=== PATIENT | female | born 1970 | race Caucasian/White ===

== ENCOUNTER 2018-09-18 18:42 | Outpatient (REF) | payer BC, SELFPAY ==
--- NOTE | 2018-09-18 15:00 | PAPFT_PTH ---
PATIENT: Kiya Lewis LOC: [facility] U#:[id number] AGE/SX: 48/F ROOM: RE09/18/[address]: Adri Coelho MD : 1970 BED: DIS: 09/18/2018 SPEC #: [id number] RECD: 09/19/18 13:20 STATUS: KIRILL REDianne #: [id number] STORM: 09/18/18 15:[address]: Adri Coelho DEPT: [facility] Cytology RECD BY: Marcelle Little Tissues: 1 - CX/ENDOCX FOR PAP SMEARS Procedures: PAP THIN PREP/UVM Screening HPV DNA PROBE Comments: [id number]
== END 2018-09-18 19:02 ==
LOC: LBN 18:42
PROVIDERS: PCP Family Medicine; Visit Provider Family Medicine
DX: Z12.4 Encounter for screening for malignant neoplasm of cervix (principal); Z11.51 Encounter for screening for human papillomavirus (HPV)
CPT/HCPCS: 88142; 87624

== ENCOUNTER 2018-09-22 00:56 | Outpatient (CLI) | payer BC, SELFPAY ==
--- NOTE | 2018-09-22 11:36 | DI.RAD_ITS ---
SYMPTOMS/DIAGNOSIS: PARESTHESIA AND PAIN LT UPPER EXTREMITY, PARESTHESIA OF SKIN, R20.2 CERVICAL SPINE: Odontoid, AP, lateral and bilateral oblique views. There are no priors for comparison. There is straightening of the normal cervical lordosis. This may be due to muscle spasm or patient positioning. The odontoid is intact. The lateral masses are well aligned. There are small endplate osteophytes seen at C 4 - 5. There is mild disc space narrowing and small endplate osteophytes at C 5 - 6. The remaining disc levels are unremarkable. There is mild narrowing of the neural foramen on the left at C 5 - 6 and on the right at C 5 - 6. No acute fracture or subluxation is seen. The prevertebral soft tissues are unremarkable. The bones are normally mineralized. IMPRESSION: Mild degenerative changes of the cervical spine.
== END 2018-09-22 01:16 ==
PROVIDERS: PCP Family Medicine; Visit Provider Family Medicine
DX: R20.2 Paresthesia of skin (principal); M47.812 Spondylosis without myelopathy or radiculopathy, cervical region; M79.622 Pain in left upper arm
CPT/HCPCS: 72050

== ENCOUNTER 2018-10-13 00:05 | Outpatient (CLI) | payer BC, SELFPAY ==
--- NOTE | 2018-10-13 07:30 | DI.MAMMO_ITS ---
SYMPTOMS/DIAGNOSIS: SCREENING, Z12.31 MAMMOGRAMS: Mammograms were interpreted according to the usual protocol including computer analysis with CAD system, tomosynthesis and C view imaging. Comparison is with the prior examinations. No suspicious masses or microcalcifications are seen. There is asymmetric breast tissue in the medial left breast seen on the craniocaudad view. This may simply represent overlying fibroglandular tissue, but a spot compression view is requested for further evaluation. Ultrasound may be indicated at that time. IMPRESSION: Additional views of the left breast as described above. Category 0. Breast density B. MQSA ASSESSMENT OF FINDINGS: Incomplete: Needs additional imaging evaluation. Category 0. Patient will receive a letter notifying them of these results. BI-RADS category B. There are scattered areas of fibroglandular density.
== END 2018-10-13 00:25 ==
PROVIDERS: PCP Family Medicine; Visit Provider Family Medicine
DX: Z12.31 Encounter for screening mammogram for malignant neoplasm of breast (principal); R92.8 Other abnormal and inconclusive findings on diagnostic imaging of breast
CPT/HCPCS: 77063; 77067

== ENCOUNTER 2018-10-18 02:00 | Outpatient (CLI) | payer BC, SELFPAY ==
--- NOTE | 2018-10-18 14:15 | DI.COMBO_ITS ---
SYMPTOMS/DIAGNOSIS: ASYMMETRIC BREAST TISSUE, MEDIAL LEFT BREAST, ? FIBROGLANDULAR TISSUE ADDITIONAL VIEWS OF THE LEFT BREAST AND LEFT BREAST ULTRASOUND: Additional images are interpreted according to the usual protocol including tomosynthesis and 2D imaging. Compression CC spot films of the left breast were obtained today. There is no definite mass. At ultrasound, no cyst or mass is identified. SUMMARY: No evidence of malignancy, category 1. Yearly screening mammography is recommended. Breast density category B. SA ASSESSMENT OF FINDINGS: Negative. Category 1. Patient will receive a letter notifying them of these results. BI-RADS category B. There are scattered areas of fibroglandular density.
== END 2018-10-18 02:20 ==
PROVIDERS: PCP Family Medicine; Visit Provider Family Medicine
DX: Z12.31 Encounter for screening mammogram for malignant neoplasm of breast (principal); R92.8 Other abnormal and inconclusive findings on diagnostic imaging of breast; N64.59 Other signs and symptoms in breast
CPT/HCPCS: 76642; 77063; 77067

== ENCOUNTER 2019-01-16 00:31 | Outpatient (CLI) | payer BC, SELFPAY ==
--- NOTE | 2019-01-16 09:32 | DI.US_ITS ---
SYMPTOMS/DIAGNOSIS: IRREGULAR MENSTRUAL PERIOD X 1 MONTH, ABNL UTERINE BLEEDING, N93.9 PELVIC ULTRASOUND: A transabdominal and transvaginal examination was carried out. The uterus measures 8.6 cm in length, 4.8 cm in height and 4.9 cm in width with an endometrial stripe of 8.5 mm. The right ovary measures 2.5 x 1.3 x 1.5 cm. The left ovary was not visualized. There is no evidence of pelvic free fluid. The kidneys are unremarkable. SUMMARY: Unremarkable examination with note made of nonvisualization of the left ovary.
== END 2019-01-16 00:51 ==
PROVIDERS: PCP Family Medicine; Visit Provider Nurse Practitioner Family
DX: N93.9 Abnormal uterine and vaginal bleeding, unspecified (principal)
CPT/HCPCS: 76830; 76856

== ENCOUNTER 2019-03-07 12:16 | Outpatient (CLI) | payer BC, SELFPAY ==
--- NOTE | 2019-03-07 12:29 | DI.RAD_ITS ---
SYMPTOMS/DIAGNOSIS: SHORTNESS OF BREATH, PNEUMONIA, J18.9 PA AND LATERAL CHEST: The heart is normal in size. The lungs are clear. The mediastinal structures and pleura appear intact. SUMMARY: Normal chest.
== END 2019-03-07 12:36 ==
PROVIDERS: PCP Family Medicine; Visit Provider Emergency Medicine
DX: J18.9 Pneumonia, unspecified organism (principal); R06.02 Shortness of breath
CPT/HCPCS: 71046

== ENCOUNTER 2019-05-08 08:06 | Day surgery (SDC) | payer BC, SELFPAY ==
--- NOTE | 2019-05-08 07:02 | W.COLOREPORT ---
Date of service: 05/08/19 Time of Service: 09:25 Colonoscopy Report Date of procedure: 05/08/19 Pre-op diagnosis general: Hx of Villous Serrated adenoma Post-op diagnosis procedure note: other (Multiple colorectal polyps) Procedure: Colonoscopy with polypectomy Surgeon: Iris Lewis Anesthesia proc note operative: other (General/ ASA 2/Jaron Chacon, CECILIA) Estimated blood loss (mL): 3 Pathology: other (Rectal polypx2, sigmoid polyps x4, hepatic flexure P, descending polyp,) Complications: None Disposition: same day Indications: Mrs Méndez is a pleasant 49-year-old female who had a colonoscopy in 2016 which showed a villous serrated adenoma. She was seen in the office for follow-up colonoscopy. Risks, benefits and complications have been reviewed. Complications include but are not limited to bleeding, pain, perforation, missed small lesion/polyp, sore throat, aspiration and adverse reaction to the medications. Questions were entertained and answered to their satisfaction and they wished to proceed. No guarantees were given or implied. Prep: Miralax/Dulcolax Procedure Start Time: :25 Procedure End Time: 10:04 Retraction Time: 17 minutes Findings: Multiple flat polyps Procedure Description: After informed consent was obtained the patient was taken to the procedure room and placed in a left decubitous position. Monitors were applied and a time out was done. The patients name, date of , procedure, allergies to medications and metal in their body was reviewed. The patient was then sedated. Once sedated and comfortable a rectal exam was done. External exam was normal. Internal exam revealed a normal sphincter tone and no palpable masses. The scope was then introduced and retro-flexed. No internal hemorrhoids, masses or polyps were identified. The scope was then advanced to the cecum with some difficulty. The colon was tortuous. The TI and appendiceal orifice were identified. The prep was adequate. The scope was then slowly retracted over 17 minutes back into the rectum. Polyps were removed with cold forceps in the rectum x2, sigmoid colon x4, cecum, and descending colon. Polyp was removed with hot snare in the hepatic flexure. No diverticula were identified. The scope was removed and the patient was woken up and taken back to Same day surgery in stable condition. The patient tolerated the procedure well and there were no immediate complications. Follow up: The patient should follow up in 3 years unless they develop changes in bowel habits or other new gastrointestinal complaints.
--- NOTE | 2019-05-08 07:04 | PDOC.DSDIS_ITS ---
Discharge Plan Disposition Patient Disposition: HOME Condition: Good Discharge Details Reason For Visit: Hx of polyps Attending Provider: Iris Lewis Primary Care Provider: Adri Coelho Home Meds and New Rx's Prescriptions: Continued triamcinolone acetonide 0.1 % cream 1 applic TP BID PRN (Reason: dermatitis) Qty: 30 RF: 3 meloxicam 15 mg tablet 15 mg PO PRN RF: 0 hydroxyzine HCl 25 mg tablet 25 - 50 mg PO HS PRN (Reason: itching) Qty: 30 RF: 2 carisoprodol 350 mg tablet 350 mg PO TID PRN (Reason: muscle pain) Qty: 25 RF: 0 albuterol sulfate [ProAir HFA] 8.5 GM HFA aerosol inhaler 1 - 2 puff Inhalation QID PRNQty: 1 RF: 6 omeprazole 40 mg capsule,delayed release(DR/EC) 40 mg PO DAILY Qty: 30 RF: 11 Symbicort 80-4.5 mcg/actuation HFA aerosol inhaler 2 puff Inhalation BID Qty: 1 RF: 6 Discontinued polyethylene glycol 3350 17 gram/dose powder 238 g PO ONCE Qty: 238 RF: 0 bisacodyl [Dulcolax (bisacodyl)] 5 mg tablet,delayed release (DR/EC) 5 mg PO ONCE Qty: 4 RF: 0 Discharge Instructions Instructions: Colonoscopy (GEN), Colorectal Polyps (DC) Additional Instructions: Findings: 9 polyps Follow up: 3 years Please call if you develop: fevers >101.5 Nausea or Vomiting Abdominal pain that is not transient DAY SURGERY UNIT POST ENDOSCOPY INSTRUCTIONS 1. Because there will be medication in your system for the next 24 hours, you may feel a little sleepy. Your coordination will be affected. Therefore: a. Do not drive or operate dangerous equipment for 24 hours. b. Do not drink alcohol beverages for 24 hours (not even beer). c. Plan to go home and rest for the day. 2. Generally there are no restrictions on your activity after a day or so has gone by, but you may feel a bit fatigued for a few days. 3 After you arrive home you may have a light meal and return to a normal diet as you can tolerate it without feeling sick to your stomach. 4. After surgery, you may feel pain or discomfort. This should be only transien t, but if it persists please contact your doctor. 5. If there are any questions regarding the findings of your procedure, please feel free to contact your doctor. 6. If you are unable to contact your doctor with a problem, contact the hospital at [phone]. 7. Continue all your regular medications unless directed otherwise. I understand the above instructions and have no questions. Signature of Patient or Responsible Adult Escort Date/Time Name of Responsible Adult Escort Signature of Nurse Date/Time Activity:: Activity as Tolerated Diet:: As Tolerated Discharge Orders Discharge Orders: Discharge Order (Routine); Ordered 05/08/19 Ordered By: Iris Lewis DS: Diagnosis Discharge Diagnosis (1) S/P colonoscopy: Status: Acute (2) Colorectal polyp detected on colonoscopy: Status: Acute
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
[2019-05-08 08:26] VITALS: BP 121/52; PULSE 67; RESP 16; TEMP 36.2; O2SAT 100
[2019-05-08] MEDS: Lactated Ringers 1,000 ML 80 ML IV (08:49)
--- NOTE | 2019-05-08 09:26 | BOWEL_PTH ---
PATIENT: Kiya Lewis LOC: [facility] U#:[id number] AGE/SX: 49/F ROOM: RE05/08/[address]: Iris Lewis MD : 1970 BED: DIS: 05/08/2019 SPEC #: [id number] RECD: 05/08/19 12:48 STATUS: KIRILL RE #: [id number] STORM: 05/08/19 09:[address]: Iris Lewis DEPT: Surgical Specimen RECD BY: Marcelle Little ENTERED: 05/08/19 12:49 SP TYPE: Bowel OTHR DR: Adri Coelho MD Tissues: 1 - BIOPSY BOWEL 2 - BIOPSY BOWEL 3 - BIOPSY BOWEL 4 - BIOPSY BOWEL 5 - BIOPSY BOWEL 6 - BIOPSY BOWEL 7 - BIOPSY BOWEL Procedures: GROSS AND MICRO LEVEL 4 Comments: [id number]
[2019-05-08 10:40] VITALS: BP 103/55; PULSE 56; RESP 18; TEMP 36.2; O2SAT 100
== END 2019-05-08 11:05 | disposition home or self-care (01) ==
LOC: SUR 08:07
PROVIDERS: PCP Family Medicine; Visit Provider Surgery
PROC: 0DJD8ZZ Inspection of Lower Intestinal Tract, Via Natural or Artificial Opening Endoscopic (ICD-10-PCS; CPT 45378; principal; 2019-05-08 09:30)
DX: Z12.11 Encounter for screening for malignant neoplasm of colon (principal); D12.0 Benign neoplasm of cecum; D12.3 Benign neoplasm of transverse colon; D12.4 Benign neoplasm of descending colon; D12.5 Benign neoplasm of sigmoid colon; K62.1 Rectal polyp; Z86.010 Personal history of colon polyps
CPT/HCPCS: 45385; 45380; 88305; NC; J2250; J3010

== ENCOUNTER 2019-08-16 10:08 | Outpatient (CLI) | payer BC, SELFPAY ==
[2019-08-16 10:26] LABS: HCT 36.6 % (36.0-46.0); HGB 12.2 g/dL (12.0-15.5); Mean Corp. HGB Concentration 33.3 g/dL (32.0-36.0); Mean Corpuscular Hemoglobin 33.7 pg (27.0-33.0); Mean Corpuscular Volume 101.1 fL (80-95); Mean Platelet Volume 9.9 fL (8.0-11.0); Platelet Count 223 x1000/uL (130-400); RBC 3.62 m/cumm (4.00-5.20); RBC Distribution Width 12.9 % (11.7-14.6); White Blood Cell Count 5.55 k/cumm (4.4-10.8)
[2019-08-16 11:07] LABS: Magnesium 1.9 mg/dL (1.8-2.4)
[2019-08-17 14:08] LABS: Chlamydia Result Negative (Negative); GC Result Negative (Negative)
== END 2019-08-16 10:28 ==
PROVIDERS: PCP Family Medicine; Visit Provider Nurse Practitioner Family
DX: N92.0 Excessive and frequent menstruation with regular cycle (principal); Z11.3 Encounter for screening for infections with a predominantly sexual mode of transmission; Z79.899 Other long term (current) drug therapy
CPT/HCPCS: 36415; 85027; 87491; 87591; 83735; 84443

== ENCOUNTER 2019-08-20 09:37 | Outpatient (REF) | payer BC, SELFPAY ==
--- NOTE | 2019-08-20 09:15 | ENDOMET_PTH ---
PATIENT: Kiya Lewis LOC: [facility] U#:[id number] AGE/SX: 49/F ROOM: RE08/20/[address]: Celio Dominguez MD : 1970 BED: DIS: 08/20/2019 SPEC #: [id number] RECD: 08/20/19 11:09 STATUS: KIRILL RE #: [id number] STORM: 08/20/19 09:[address]: Celio Dominguez DEPT: Surgical Specimen RECD BY: Marcelle Little ENTERED: 08/20/19 11:10 SP TYPE: Endomet OTHR DR: Adri Coelho MD Tissues: 1 - ENDOMETRIUM BX/CURRETTE Procedures: GROSS AND MICRO LEVEL 4 Comments: [id number]
== END 2019-08-20 09:57 ==
LOC: LBN 09:37
PROVIDERS: PCP Family Medicine; Visit Provider Obstetrics & Gynecology
DX: N93.9 Abnormal uterine and vaginal bleeding, unspecified; N85.01 Benign endometrial hyperplasia
CPT/HCPCS: 88305

== ENCOUNTER 2019-08-31 12:42 | Outpatient (CLI) | payer BC, SELFPAY ==
[2019-08-31 13:04] LABS: HCT 37.4 % (36.0-46.0); HGB 12.7 g/dL (12.0-15.5); Mean Corpuscular Hemoglobin 33.8 pg (27.0-33.0); Mean Corpuscular Volume 99.5 fL (80-95); Platelet Count 239 x1000/uL (130-400); RBC 3.76 m/cumm (4.00-5.20); RBC Distribution Width 13.1 % (11.7-14.6); White Blood Cell Count 5.52 k/cumm (4.4-10.8)
== END 2019-08-31 13:02 ==
PROVIDERS: PCP Family Medicine; Visit Provider Obstetrics & Gynecology
DX: N92.6 Irregular menstruation, unspecified (principal); Z01.818 Encounter for other preprocedural examination; Z01.812 Encounter for preprocedural laboratory examination
CPT/HCPCS: 36415; 85027; 86850; 86900; 86901

== ENCOUNTER 2019-09-05 06:05 | Day surgery (SDC) | payer BC, SELFPAY ==
[2019-09-05 06:10] VITALS: BP 128/73; PULSE 68; RESP 20; TEMP 36.6; O2SAT 100
[2019-09-05] MEDS: Lactated Ringers 1,000 ML 125 ML IV ×2 (06:47→08:09)
--- NOTE | 2019-09-05 07:55 | ENDOMET_PTH ---
PATIENT: Kiya Lewis LOC: [facility] U#:[id number] AGE/SX: 49/F ROOM: RE09/05/[address]: Celio Dominguez MD : 1970 BED: DIS: 09/05/2019 SPEC #: [id number] RECD: 09/05/19 12:46 STATUS: KIRILL REQ #: [id number] STORM: 09/05/19 07:[address]: Celio Dominguez DEPT: Surgical Specimen RECD BY: Marcelle Little ENTERED: 09/05/19 12:46 SP TYPE: Endomet OTHR DR: Adri Coelho MD Tissues: 1 - ENDOMETRIUM BX/CURRETTE Procedures: GROSS AND MICRO LEVEL 4 Comments: [id number]
[2019-09-05] MEDS: Lidocaine 1% Multi-Dose 50 ML VIAL (08:10)
[2019-09-05 08:49] VITALS: BP 129/73; PULSE 65; RESP 20; TEMP 36.8; O2SAT 97
--- NOTE | 2019-09-05 08:49 | W.PM.DSUDISC ---
Discharge Plan Disposition Patient Disposition: HOME Condition: Good Discharge Details Reason For Visit: Abnormal uterine bleeding. Attending Provider: Celio Dominguez Primary Care Provider: Adri Coelho Home Meds and New Rx's Prescriptions: Continued meloxicam 15 mg tablet 15 mg PO PRN RF: 0 hydroxyzine HCl 25 mg tablet 25 - 50 mg PO HS PRN (Reason: itching) Qty: 30 RF: 2 carisoprodol 350 mg tablet 350 mg PO TID PRN (Reason: muscle pain) Qty: 25 RF: 0 norethindrone acetate 5 mg tablet 10 mg PO DAILY RF: 0 albuterol sulfate [ProAir HFA] 8.5 GM HFA aerosol inhaler 1 - 2 puff Inhalation QID PRNQty: 1 RF: 6 Symbicort 80-4.5 mcg/actuation HFA aerosol inhaler 2 puff Inhalation BID Qty: 1 RF: 6 omeprazole 40 mg capsule,delayed release(DR/EC) 40 mg PO DAILY Qty: 90 RF: 4 triamcinolone acetonide 0.1 % cream 1 applic TP BID PRN (Reason: dermatitis) Qty: 30 RF: 3 Discharge Instructions Activity:: Activity as Tolerated Diet:: As Tolerated Discharge Orders Discharge Orders: Discharge Order (Routine); Ordered 09/05/19 Ordered By: Celio Dominguez DS: Diagnosis Discharge Diagnosis (1) Abnormal uterine bleeding: Status: Acute
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
[2019-09-05] MEDS: HYDROcodone 5/Acetaminophen 325 TAB PO (08:57)
== END 2019-09-05 09:45 | disposition home or self-care (01) ==
PROVIDERS: PCP Family Medicine; Visit Provider Obstetrics & Gynecology
PROC: 0UDB8ZZ Extraction of Endometrium, Via Natural or Artificial Opening Endoscopic (ICD-10-PCS; CPT 58558; principal; 2019-09-05 07:30)
PROC: (CPT 58353; 2019-09-05 07:30)
DX: N71.0 Acute inflammatory disease of uterus (principal); N71.1 Chronic inflammatory disease of uterus; N85.00 Endometrial hyperplasia, unspecified; F17.210 Nicotine dependence, cigarettes, uncomplicated; K21.9 Gastro-esophageal reflux disease without esophagitis
CPT/HCPCS: 58563; 88305; J0131; J1100; J1885; J2250; J2405; J2704; J3010

== ENCOUNTER 2019-12-25 01:41 | Outpatient (CLI) | payer BC, SELFPAY ==
--- NOTE | 2019-12-25 12:00 | DI.MAMMO_ITS ---
EXAM: MG MAMMO SCREENING CLINICAL HISTORY: screening,z12.39 TECHNIQUE: Bilateral full field digital CC and MLO mammographic images were obtained with 3D tomosyn thesis and utilizing computer aided detection (CAD). COMPARISON: Available for comparison. FINDINGS: Masses/Architectural Distortion: None seen. Microcalcifications: No suspicious pleomorphic-type are seen. Skin Thickening/Nipple Retraction: None. IMPRESSION: 1. No significant interval change with no specific features of malignancy noted. 2. Unless there is more urgent need, screening mammography is recommended, as per [employer] guidelines. BI-RADS Category 1 - Negative Breast Density - Category B - Scattered areas of fibroglandular density A negative radiographic report should not delay biopsy if a dominant or clinically suspicious mass is present. Up to ten percent of cancers are not identified on mammography. A negative report may reinforce clinical impression. Adenosis and dense breasts may obscure an underlying neoplasm. False positive reports average 6 to 10%. Patient will receive a letter notifying them of these results.
== END 2019-12-25 02:01 ==
PROVIDERS: PCP Family Medicine; Visit Provider Family Medicine
DX: Z12.31 Encounter for screening mammogram for malignant neoplasm of breast (principal)
CPT/HCPCS: 77063; 77067

== ENCOUNTER 2020-08-14 02:05 | Outpatient (CLI) | payer BC, SELFPAY ==
[2020-08-15 14:40] LABS: COVID-19 RT-PCR UVMMC Result Negative (Negative)
== END 2020-08-14 02:25 ==
PROVIDERS: PCP Family Medicine; Visit Provider Surgery
DX: Z11.59 Encounter for screening for other viral diseases (principal); Z01.818 Encounter for other preprocedural examination
CPT/HCPCS: U0003

== ENCOUNTER 2020-08-18 07:06 | Day surgery (SDC) | payer BC, SELFPAY ==
--- NOTE | 2020-08-18 06:45 | COLE_ITS ---
Date of service: 08/18/20 Time of Service: 08:16 Colonoscopy Report Date of procedure: 08/18/20 Pre-op diagnosis general: Colon polyps Post-op diagnosis procedure note: same (mild diverticulosis) Procedure: Colonoscopy with polypectomy Surgeon: Iris Lewis Anesthesia proc note operative: other (General/ASA 2/Jaron Angel CRNA) Estimated blood loss (mL): 15 Pathology: other (Transverse polyps x2, ascending colon polyp bx, descending colon polyp and sigmoid colon polyps x3) Complications: None Disposition: same day Indications: The patient is here for Colonoscopy pre-op. Her last screening was in 2019, which was remarkable for 9 polyps which were sessile serrated and tubular adenomatous polyps. Colonoscopy prior to this was in 2015 which was remarkable for villious serrated adenoma. She has no family history of colon cancer. She has not had any bowel habit changes. -Discussed colonoscopy bowel prep as well as the procedure. Discussed possible complications of the procedure to include bleeding, pain, perforation, missed small lesion/polyp, sore throat, aspiration and adverse reaction to the medications. Questions were answered to patient?s satisfaction. No guarantees were implied or given. Prep: Miralax/Dulcolax Procedure Start Time: 08:16 Procedure End Time: 09:11 Retraction Time: 42 minutes Findings: 8 sessile polyps. In the ascending colon close to the Hepatic flexure there was again a large flat polyp. It was biopsied and the area was tattoed There was also mild diverticulosis noted Procedure Description: After informed consent was obtained the patient was taken to the procedure room and placed in a left decubitous position. Monitors were applied and a time out was done. The patients name, date of , procedure, allergies to medications and metal in their body was reviewed. The patient was then sedated. Once sedated and comfortable a rectal exam was done. External exam was normal. Internal exam revealed a normal sphincter tone and no palpable masses. The scope was then introduced and retro-flexed. No internal hemorrhoids, polyps or masses were identified on retro-flexion. The scope was then advanced to the cecum without difficulty. The ileocecal valve and appendiceal orifice were identified. The prep was adequate. The scope was then slowly retracted over 42 minutes back into the rectum. Polyps were removed with cold forceps in the transverse colon x2, descending colon and sigmoid colon x3. In the ascending colon, close to the hepatic flexure there was again a large flat polyp. The polyp was biopsied, as it was too large for me to remove, and the area was tatto oed. There was mild diverticulosis noted. The scope was removed and the patient was woken up and taken back to Same day surgery in stable condition. The patient tolerated the procedure well and there were no immediate complications. Follow up: I will discuss with patient referral to [facility]. She has a lot of sessile polyps every time I scope her. I did not feel comfortable trying to remove the large sessile polyp for fear of perforation. GI might be able to remove it. The area was tattooed.
--- NOTE | 2020-08-18 06:46 | PDOC.DSDIS_ITS ---
Discharge Plan Disposition Patient Disposition: HOME Condition: Good Discharge Details Reason For Visit: Hx of polyps Attending Provider: Iris Lewis Primary Care Provider: Adri Coelho Home Meds and New Rx's Prescriptions: Continued ketoconazole 2 % cream 1 applic topical DAILY Qty: 15 RF: 0 fluconazole [Diflucan] 150 mg tablet 150 mg PO ONCE Qty: 1 RF: 0 hydroxyzine HCl 25 mg tablet 25 - 50 mg PO HS PRN (Reason: itching) Qty: 30 RF: 2 budesonide-formoterol [Symbicort] 80-4.5 mcg/actuation HFA aerosol inhaler 2 puff Inhalation BID Qty: 1 RF: 6 trazodone 50 mg tablet 50 mg PO QHS PRN (Reason: sleep) Qty: 30 RF: 2 omeprazole 40 mg capsule,delayed release(DR/EC) 40 mg PO DAILY Qty: 90 RF: 4 carisoprodol 350 mg tablet 350 mg PO TID PRN (Reason: muscle pain) Qty: 25 RF: 0 albuterol sulfate [ProAir HFA] 90 mcg/actuation HFA aerosol inhaler 1 - 2 puff Inhalation QID PRN (Reason: bronchospasm) Qty: 1 RF: 5 triamcinolone acetonide 0.1 % cream 1 applic TP BID PRN (Reason: dermatitis) Qty: 30 RF: 3 Discontinued polyethylene glycol 3350 17 gram/dose powder 238 g PO ONCE Qty: 238 RF: 0 bisacodyl [Dulcolax (bisacodyl)] 5 mg tablet,delayed release (DR/EC) 5 mg PO ONCE Qty: 4 RF: 0 Discharge Instructions Additional Instructions: Findings: 8 polyps. All flat. There was re-growth of the large flat polyp again. I biopsied it and the tattooed the area. As we discussed I [place] [facility] [place] regarding the number of polyps as well as the removal of the large flat polyp. Please call if you develop: fevers >101.5 Nausea or Vomiting Abdominal pain that is not transient DAY SURGERY UNIT POST ENDOSCOPY INSTRUCTIONS 1. Because there will be medication in your system for the next 24 hours, you may feel a little sleepy. Your coordination will be affected. Therefore: a. Do not drive or operate dangerous equipment for 24 hours. b. Do not drink alcohol beverages for 24 hours (not even beer). c. Plan to go home and rest for the day. 2. Generally there are no restrictions on your activity after a day or so has go ne by, but you may feel a bit fatigued for a few days. 3 After you arrive home you may have a light meal and return to a normal diet as you can tolerate it without feeling sick to your stomach. 4. After surgery, you may feel pain or discomfort. This should be only transient, but if it persists please contact your doctor. 5. If there are any questions regarding the findings of your procedure, please feel free to contact your doctor. 6. If you are unable to contact your doctor with a problem, contact the hospital at [phone]. 7. Continue all your regular medications unless directed otherwise. I understand the above instructions and have no questions. Signature of Patient or Responsible Adult Escort Date/Time Name of Responsible Adult Escort Signature of Nurse Date/Time Activity:: Activity as Tolerated Diet:: As Tolerated Discharge Orders Discharge Orders: Discharge Order (Routine); Ordered 08/18/20 Ordered By: Iris Lewis
[2020-08-18 07:11] VITALS: BP 132/84; PULSE 69; RESP 18; TEMP 36.5; O2SAT 98
[2020-08-18] MEDS: Lactated Ringers 1,000 ML 80 ML IV (07:35)
--- NOTE | 2020-08-18 08:20 | BOWEL_PTH ---
PATIENT: Kiya Lewis LOC: [facility] U#:[id number] AGE/SX: 50/F ROOM: RE08/18/[address]: Iris Lewis MD : 1970 BED: DIS: 08/18/2020 SPEC #: [id number] RECD: 08/18/20 12:42 STATUS: KIRILL RE #: [id number] STORM: 08/18/20 08:[address]: Iris Lewis DEPT: Surgical Specimen RECD BY: Marcelle Little ENTERED: 08/18/20 12:44 SP TYPE: Bowel OTHR DR: Adri Coelho MD Tissues: 1 - BIOPSY BOWEL 2 - BIOPSY BOWEL 3 - BIOPSY BOWEL 4 - BIOPSY BOWEL 5 - BIOPSY BOWEL Procedures: GROSS AND MICRO LEVEL 4 Comments: [id number]
[2020-08-18] MEDS: Endoscopic Tattoo 5 ML SYR IJ (08:44)
[2020-08-18 09:46] VITALS: BP 126/76; PULSE 60; RESP 17; TEMP 36.1; O2SAT 98
== END 2020-08-18 10:06 | disposition home or self-care (01) ==
LOC: SUR 07:07
PROVIDERS: PCP Family Medicine; Visit Provider Surgery
PROC: 0DJD8ZZ Inspection of Lower Intestinal Tract, Via Natural or Artificial Opening Endoscopic (ICD-10-PCS; CPT 45378; principal; 2020-08-18 08:30)
DX: Z12.11 Encounter for screening for malignant neoplasm of colon (principal); Z86.010 Personal history of colon polyps; D12.3 Benign neoplasm of transverse colon; D12.2 Benign neoplasm of ascending colon; D12.4 Benign neoplasm of descending colon; D12.5 Benign neoplasm of sigmoid colon; K57.30 Diverticulosis of large intestine without perforation or abscess without bleeding; J45.909 Unspecified asthma, uncomplicated; K21.00 Gastro-esophageal reflux disease with esophagitis, without bleeding
CPT/HCPCS: 45380; 45381; 88305

== ENCOUNTER 2020-09-05 01:38 | Outpatient (CLI) | payer BC, SELFPAY ==
[2020-09-06 13:06] LABS: COVID-19 RT-PCR UVMMC Result Negative (Negative)
== END 2020-09-05 01:58 ==
PROVIDERS: PCP Family Medicine; Visit Provider Surgery
DX: Z11.52 Encounter for screening for COVID-19 (principal); Z01.818 Encounter for other preprocedural examination
CPT/HCPCS: U0003

== ENCOUNTER 2020-09-05 01:49 | Outpatient (CLI) | payer BC, SELFPAY ==
[2020-09-05 11:11] LABS: Abs Immature Grans 0.02 10^3/uL (0.0-0.06); Absolute Basophil Count 0.04 10^3/uL (0.0-0.2); Absolute Eosinophil Count 0.01 10^3/uL (0.0-0.7); Absolute Lymphocyte Count 1.39 10^3/uL (1.2-3.4); Absolute Monocyte Count 0.33 10^3/uL (0.1-0.8); Absolute Neutrophil Count 3.78 10^3/uL (1.2-6.7); Basophils % 0.7; Eosinophils % 0.2; HCT 37.6 % (36.0-46.0); HGB 12.7 g/dL (11.2-15.7); Immature Grans % 0.4; MCH 34.2 pg (27.0-33.0); MCHC 33.8 % (32.0-36.0); MCV 101.3 fL (80-95); MPV 10.6 fL (8.0-11.0); Monocytes % 5.9; Neutrophils % 67.8; Nucleated RBC 0 %; Platelet Count 232 10^3/uL (130-400); RBC 3.71 10^6/uL (3.93-5.22); RDW 12.6 % (11.7-14.6); RDW-SD 47.1 fL; WBC 5.57 10^3/uL (4.4-10.8)
[2020-09-05 11:48] LABS: ALT 18 U/L (14-59); AST 15 U/L (15-37); Albumin 3.9 g/dL (3.4-5.0); Alkaline Phosphatase 66 U/L (46-116); Anion Gap 6.2 mmol/L (3-11); BUN 10 mg/dL (7-18); Bilirubin, Total 0.3 mg/dL (0.2-1.0); CO2 27.8 mmol/L (21.0-32.0); CREATININE 0.7 mg/dL (0.55-1.02); Calcium 8.9 mg/dL (8.5-10.1); Chloride 99 mmol/L (98-107); Glucose 104 mg/dL (74-106); Potassium 3.9 mmol/L (3.5-5.1); Sodium 133 mmol/L (136-145); Total Protein 7.3 g/dL (6.4-8.2)
== END 2020-09-05 02:09 ==
PROVIDERS: Surgery; PCP Family Medicine; Visit Provider Surgery
DX: D12.6 Benign neoplasm of colon, unspecified (principal); Z01.818 Encounter for other preprocedural examination; Z01.812 Encounter for preprocedural laboratory examination
CPT/HCPCS: 36415; 80053; 86850; 86900; 86901; 85025

== ENCOUNTER 2020-09-09 07:08 | Inpatient (IN) | payer BC, SELFPAY ==
[2020-09-09] VITALS (20 sets, daily range): BP systolic 99–124; BP diastolic 47–79; PULSE 57–69; RESP 14–21; TEMP 36–37.7; O2SAT 96–100
[2020-09-09] MEDS: Lactated Ringers 1,000 ML 80 ML IV ×2 (06:34→12:37)
[2020-09-09] MEDS: Acetaminophen 500 MG TAB 1000 MG PO (06:35)
[2020-09-09] MEDS: Celecoxib 200 MG CAP PO (06:35)
--- NOTE | 2020-09-09 07:01 | ROE_ITS ---
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 Both times she has had numerous precancerous polyps. This last colonoscopy she is noted to have a tubular adenoma with focal high-grade dysplasia in the area of her previous polyp removal. This area was tattooed. Because of the high-grade dysplasia and the fact that I was not able to remove the whole polyp because of its size I feel that the best option is to do a partial colectomy. I am also wondering whether she has a genetic disposition to polyps like polyposis syndrome. She is interested in potentially having some genetic testing done. I told her that after her surgery when she has recovered I will send her to a oxygen therapy technician to discuss possible genetic testing. Findings: Tattoo was noted at the mid-ascending colon. Procedure Description: After informed consent was obtained the patient was taken to PACU by anesthesia. An epidural was placed without difficulty. The patient was then brought to the operating room and placed in a supine position on the table. Monitors were applied and the patient was then placed under general anesthesia and intubated. Once intubated and the ET tube was secured a Holley catheter was placed in a standard sterile surgical fashion. At this point a timeout was done. The patient's name, date of , allergies to medications, DVT prophylaxis, antibiotic given and procedure were reviewed. Fire risk was assessed. The patient's abdomen was then prepped and draped in a sterile surgical fashion using chlorhexidine. 2% lidocaine was injected just below the umbilicus. A small 5 mm incision was made. The edges of the incision were grasped with penetrating towel clamps. While pulling up on the skin a 5 mm Visiport was placed without difficulty. The abdomen was then insufflated and the camera was placed. The omentum and bowel right under the port was inspected no bleeding or injury was identified. Next 2 more ports were placed under direct visualization. 1 in the right lower quadrant and 1 in the left lower quadrant. The patient's bed was then turned to the left and I was able to identify the cecum. In the mid descending colon the tattoo was identified. The colon was gently grasped at the cecum and the white line of Toldt was dissected using LigaSure. This was done all the way around the hepatic flexure. A 4th 12 mm port was placed in the right upper quadrant at the edge of the liver. The omentum was transected between the stomach and the transverse colon. Once the cecum ascending and transverse colon was mobilized medially the terminal ileum was identified. Because of the location of the tattoo I did not feel that I could save the ileocecal valve. A small window was created with the LigaSure about 3 cm from the cecum and the mesentery of the terminal ileum. The terminal ileum was then transected with a laparoscopic stapler. Next using the LigaSure the omentum was transected along the ascending colon. I was able to visualize numerous lymph nodes that had picked up the tattoo material. I made sure to get underneath these lymph nodes with the LigaSure so they would go with the specimen. The reight colic artery and vein were transected and no bleeding was identified. Next I was able to identify the middle colic artery. The mesentery was transected to just proximal to the middle colic artery. A window was again created in the mesentery of the transverse colon proximal to the middle colic artery. At this point the large bowel was completely mobilized both medially and laterally. The abdomen was deflated. The 12 mm port was removed. 2% lidocaine was injected into the skin and subcutaneous tissue and a 3 inch incision was made with a 10 blade. Cautery was used to go through the subcutaneous tissue down to the fascia. I was then able to place my finger in to the previously created opening in the fascia and the rest of the fascia was opened through the rectus muscle with cautery. The large bowel was then gently grasped with a Juliette and pulled up through the incision. I again looked for the middle colic artery. Once I was able to palpate that I went proximal to it and transected the large bowel with a stapler. The specimen was taken to the back table and opened up to make sure that the sessile polyp that had been biopsied was in the specimen. The polyp was identified. The specimen was then placed in formalin. After changing my outer gloves the small bowel was pulled through the incision and the edge was attached to the edge of the transverse colon using a 3-0 silk suture. Another suture was placed about 2 inches away in order to keep the small bowel and transverse colon lying parallel. A small incision was then made in the small bowel as well as the transverse colon. An 80 cm REFUGIO stapler was then placed and the anastomosis was created. Another stapler was used to close the enterotomy. Unfortunately the stapler misfired. At this point I did not want to remove more bowel as it would make the anastomosis quite tight. I decided to close the enterotomy with a 2-0 Vicryl running suture. A second layer was done with Lambert 2-0 silk sutures. Once the enterotomy was closed the mesentary was reapproximated to hopefully avoid a internal hernia. The anastomosis was placed back into the abdomen making sure that it was not twisted. I asked for sponges and instruments to be counted. Sponge instrument and needle counts were correct at this point. Next the fascia was grasped with [place]'s and the incision was closed with a #1 Vicryl running suture. The subcutaneous tissue was reapproximated using 3-0 Vicryl interrupted sutures. The dermis was closed using a 4-0 Vicryl running suture. Next the abdomen was reinflated. The camera was placed and the abdomen was irrigated with a liter and a half of fluid. The fluid was suctioned out and by the end it was clear. No bleeding was identified. The camera and instruments were removed the insufflation was suctioned out and the ports were removed. The skin was cleaned and dried. The 3 small 5 mm port sites were closed with 4-0 Vicryl. Mastisol and Steri-Strips were applied to all 4 incisions. All 4 incisions were then covered with 2 x 2's or 4 x 4's and secured with Tegaderms. The count was done. Sponge, instrument and needle counts again were correct. Patient was transferred back to bed and woken up extubated and taken back to PACU in stable condition. The patient tolerated the procedure well and there were no immediate complications.
[2020-09-09] MEDS: AMPICILLIN/SULBACTAM 3 GM in Normal Saline 100 ML IVPB ×2 (08:25→10:45)
[2020-09-09] MEDS: FentaNYL/ROPIvacaine 2 mcg/ml and 0.1% 200 ML CADD Cassette EP ×2 (08:30→22:48)
[2020-09-09] MEDS: Lidocaine 2% Multi-Dose 50 ML VIAL (09:13)
--- NOTE | 2020-09-09 10:00 | BOWEL_PTH ---
PATIENT: Kiya Lewis LOC: U#:[id number] AGE/SX: 50/F ROOM: RE09/09/[address]: Iris Lewis MD : 1970 BED: A DIS: 09/11/2020 SPEC #: [id number] RECD: 09/09/20 12:35 STATUS: KIRILL REQ #: [id number] STORM: 09/09/20 10:[address]: Iris Lewis DEPT: Surgical Specimen RECD BY: Marcelle Little ENTERED: 09/09/20 12:35 SP TYPE: Bowel OTHR DR: Adri Coelho MD Tissues: 1 - BOWEL RESECTION(OTHER) Procedures: GROSS AND MICRO LEVEL 5 Comments: [id number]
[2020-09-09] MEDS: Pantoprazole 40 MG VIAL IVP (15:09)
[2020-09-09] MEDS: Normal Saline Flush 10 ML SYR IV (15:10)
--- NOTE | 2020-09-09 15:34 | NUR.NOTE ---
Nursing Note: At 1450 on 09/09/20, this RN received report from Padmini Felix LPN and took over care of the pt.
[2020-09-09] MEDS: Nicotine 2 MG GUM CH (17:04)
[2020-09-09] MEDS: Budesonide/Formoterol 80/4.5 6.9 GM 60 PUFF INH IH (20:17)
[2020-09-10] VITALS (21 sets, daily range): BP systolic 110–137; BP diastolic 67–79; PULSE 57–84; RESP 15–20; TEMP 36.6–37.2; O2SAT 95–100
[2020-09-10] MEDS: Lactated Ringers 1,000 ML 75 ML IV ×2 (01:50→14:10)
[2020-09-10 06:55] LABS: Abs Immature Grans 0.03 10^3/uL (0.0-0.06); Absolute Basophil Count 0.01 10^3/uL (0.0-0.2); Absolute Eosinophil Count 0.01 10^3/uL (0.0-0.7); Absolute Lymphocyte Count 1.46 10^3/uL (1.2-3.4); Absolute Monocyte Count 0.44 10^3/uL (0.1-0.8); Absolute Neutrophil Count 5.28 10^3/uL (1.2-6.7); Basophils % 0.1; Eosinophils % 0.1; HCT 29.5 % (36.0-46.0); HGB 10.1 g/dL (11.2-15.7); Immature Grans % 0.4; Lymphocytes % 20.2; MCHC 34.2 % (32.0-36.0); MCV 99.3 fL (80-95); MPV 10.8 fL (8.0-11.0); Monocytes % 6.1; Neutrophils % 73.1; Nucleated RBC 0 %; Platelet Count 156 10^3/uL (130-400); RBC 2.97 10^6/uL (3.93-5.22); RDW 12.5 % (11.7-14.6); RDW-SD 45.1 fL; WBC 7.23 10^3/uL (4.4-10.8)
--- NOTE | 2020-09-10 07:04 | W.PM.PROGNOT ---
Date of Service Date of service: 09/10/20 Time of Service: 07:04 Assessment and Plan Assessment and plan (1) High grade dysplasia in colonic adenoma: Status: Acute Assessment and plan: POD #1 s/p right hemicolectomy Diet-Clear liquids, will continue this today Pain- Well controlled with epidural, she is eager to have this removed. Discussed the potential for weaning this down. Will discuss with anesthesia. Continue IV hydration. Encouraged deep breathing and use of the incentive spirometer. Activity out of bed and ambulation as tolerated. Will slowly progress her diet over the next day or two. Subjective Subjective Interval history since last seen: Patient denies having any abdominal pain at this time. She expresses that she did not get any sleep last night and is she is feeling exhausted and hungry this morning. Exam Const General: cooperative, healthy appearing and comfortable Orientation: alert and oriented x3 Resp Effort & Inspection: normal respiratory effort, no audible wheezes and no cough Objective Last Vital Signs Temp 37.0 C 09/10/20 03:10 Pulse 67 09/10/20 03:10 Resp 18 09/10/20 03:10 BP 110/67 09/10/20 03:10 Pulse Ox 97 09/10/20 03:10 Laboratory Results - last 24 hr 09/10/20 06:37 WBC 7.23 RBC 2.97 L Hgb 10.1 L Hct 29.5 L MCV 99.3 H MCH 34.0 H MCHC 34.2 RDW 12.5 Plt Count 156 MPV 10.8 Immature Gran % 0.4 Neutrophils % 73.1 Lymphocytes % 20.2 Monocytes % 6.1 Eosinophils % 0.1 Basophils % 0.1 Nucleated RBC % 0 Absolute Neutrophils 5.28 Absolute Lymphocytes 1.46 Absolute Monocytes 0.44 Absolute Eosinophils 0.01 Absolute Basophils 0.01
[2020-09-10 07:05] LABS: Anion Gap 7.2 mmol/L (3-11); BUN 5 mg/dL (7-18); CO2 24.8 mmol/L (21.0-32.0); CREATININE 0.5 mg/dL (0.55-1.02); Chloride 101 mmol/L (98-107); Glucose 90 mg/dL (74-106); Potassium 3.5 mmol/L (3.5-5.1); Sodium 133 mmol/L (136-145)
[2020-09-10] MEDS: Enoxaparin 40 MG/0.4 ML SYR SC (07:31)
[2020-09-10] MEDS: Budesonide/Formoterol 80/4.5 6.9 GM 60 PUFF INH IH ×2 (07:33→20:38)
[2020-09-10 07:40] LABS: Calcium 7.7 mg/dL (8.5-10.1)
[2020-09-10] MEDS: Nicotine 2 MG GUM CH ×2 (07:44→11:54)
--- NOTE | 2020-09-10 10:53 | INITIAL_ITS ---
- If Service Date Differs Date of service: 09/10/20 Time of Service: 10:53 Care Management Initial Assess REASON FOR HOSPITALIZATION:: high grade dysplasia in colonic adenoma PAST MEDICAL HISTORY/PAST SURGICAL HISTORY:: Medical History (Updated 08/22/20 @ 15:36 by Graciela Grant RN). Anxiety. Asthma. Colorectal polyp detected on colonoscopy. 05/26: hyperplastic polyps, tubular adenomas, sessile serrated. Cubital tunnel syndrome on left. Depressive disorder. RX for Celexa in November of 2008-her father was ill and DX'd with glioma. Has taken Celexa in the past, which worked for her. No Suicidal ideation or feelings of sadness. Dysfunctional uterine bleeding. Fracture of femur (07/07/86). Gastritis (04/28/16). gastroscopy : active reflux esophagitis/no H.Pylori/no intestinal dysplasia or metaplasia. Gastroesophageal reflux disease with esophagitis. per EGD 10/05/10. History of endometrial biopsy. 08/20/19. Internal hemorrhoids (04/28/16). Irritable colon. : normal colonoscopy. 2008: question of lactose intolerance; intermittent rectal bleeding; abdominal bloating, cramping and reflux. Colonoscopy and EGD (Dr. Blount) in 2008 revealed tubular adenoma and the EGD s. were negative. Migraine. Sessile col onic polyp (04/26/16). colonoscopy . Tubular adenoma. 2008 colono: Tubular colonoscopy/. Surgical History (Updated 08/18/20 @ 07:20 by Mandi White RN). Colonoscopy - MAC (05/08/19). 2008- Tubular adenoma. 2015- Villous serrated adenoma. Dilation and curettage (~2005). DR. CLIFFORD. EGD - MAC (~2015). 2005. Fracture, Open Treatment. L FEMUR. History of bilateral ligation of fallopian tubes. History of endometrial ablation. History of open reduction and internal fixation (ORIF) procedure PREVIOUS FUNCTIONAL STATUS/SOCIAL/FAMILY SUPPORTS:: Kiya lives in [facility] with her male senior mechanical designer Giles Gallegos and his adult son. 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 Kiya is independent at baseline and receives no community services. CURRENT FUNCTIONAL STATUS:: Kiya was sitting up in bed on a Zoom video work call when CM came to see her. She completed her call and engaged with CM in conversation. She acknowledged being very busy at work. She stated that she is feeling better and hopes to be discharged within a couple of days. She described her surgery as having a piece of bowel removed. ADVANCE DIRECTIVES:: none on file Has patient been provided with info about the portal/API?: Yes Did the patient sign up for the portal?: Yes (previously) CODE STATUS:: Full Code INSURANCE COVERAGE / FINANCIAL ISSUES:: [employer] CURRENT HOME/COMMUNITY SERVICES/EQUIPMENT:: none PRIMARY CARE PHYSICIAN:: Adri Coelho POTENTIAL DISCHARGE NEEDS:: Follow up with PCP and discharge plan of care PATIENT/FAMILY EDUCATION NEEDS:: Discharge plan, self care, follow up, limitations, Ask Me Three TRANSPORTATION:: via private vehicle with family/friend PLAN:: Kiya will likely be discharged home with no new services however it is possible that she may need home health, depending on wound care needs. Kiya will follow up with her surgeon and discharge plan of care and transport with family. CM will continue to support Kiya, her family and discharge considerations.
[2020-09-10] MEDS: Normal Saline Flush 10 ML SYR (14:10)
[2020-09-10] MEDS: Pantoprazole 40 MG VIAL IVP (14:10)
--- NOTE | 2020-09-10 14:13 | PDOC.ANES ---
Anesthesia Note 09/10/20 1414 Anesthesia Daily Epidural Maintenance Day 1 Rounded on patient this afternoon s/p laparoscopic colectomy day one. A&O x4. She states her level of pain is at a zero while resting and increases to about 2/10 with movement. 4/4 strength in all extremities, numbness still noted between the hip and knee bilat but this does not effect activity. The patient is very eager to have the epidural removed and to be discharged. She agreed to start weaning of the epidural at this time with the possibility of it being removed tomorrow if pain continues to be controlled with PO medication. Orders placed for her morning dose of lovenox to be held. Epidural basal rate decreased from 10 mL/hr to 6 mL/hr. Discussed weaning plan with patient at length and she expressed understanding. .
--- NOTE | 2020-09-10 15:16 | CHAPLAIN ---
Kiya was on a Zoom meeting on her laptop when I stopped in. I introduced myself, explained my role and offered support. Kiya said she works at [employer], and was attending a work meeting on Zoom. I let her know that I'd be available any time if she wanted another visit.
[2020-09-10] MEDS: FentaNYL/ROPIvacaine 2 mcg/ml and 0.1% 200 ML CADD Cassette EP (15:31)
[2020-09-10] MEDS: traZODone 50 MG TAB PO (20:38)
[2020-09-11] VITALS (11 sets, daily range): BP systolic 114–163; BP diastolic 62–78; PULSE 59–67; RESP 16–18; TEMP 35.5–37.1; O2SAT 96–100
[2020-09-11] MEDS: Lactated Ringers 1,000 ML 75 ML IV ×2 (02:59→10:59)
[2020-09-11] MEDS: Budesonide/Formoterol 80/4.5 6.9 GM 60 PUFF INH IH (05:40)
[2020-09-11 07:05] LABS: Abs Immature Grans 0.03 10^3/uL (0.0-0.06); Absolute Basophil Count 0.01 10^3/uL (0.0-0.2); Absolute Eosinophil Count 0.02 10^3/uL (0.0-0.7); Absolute Monocyte Count 0.34 10^3/uL (0.1-0.8); Absolute Neutrophil Count 4.21 10^3/uL (1.2-6.7); Basophils % 0.2; Eosinophils % 0.4; HCT 32.4 % (36.0-46.0); Immature Grans % 0.5; Lymphocytes % 19.3; MCH 34.7 pg (27.0-33.0); MCV 102.2 fL (80-95); MPV 10.8 fL (8.0-11.0); Neutrophils % 73.6; Nucleated RBC 0 %; Platelet Count 173 10^3/uL (130-400); RBC 3.17 10^6/uL (3.93-5.22); RDW 12.4 % (11.7-14.6); RDW-SD 46.9 fL; WBC 5.71 10^3/uL (4.4-10.8)
[2020-09-11 07:07] LABS: Anion Gap 7.1 mmol/L (3-11); BUN 4 mg/dL (7-18); CO2 26.9 mmol/L (21.0-32.0); CREATININE 0.6 mg/dL (0.55-1.02); Calcium 7.9 mg/dL (8.5-10.1); Chloride 106 mmol/L (98-107); Glucose 86 mg/dL (74-106); Potassium 3.7 mmol/L (3.5-5.1); Sodium 140 mmol/L (136-145)
[2020-09-11] MEDS: Nicotine 2 MG GUM CH (07:32)
--- NOTE | 2020-09-11 08:53 | W.PM.PROGNOT ---
Date of Service Date of service: 09/11/20 Time of Service: 08:53 Assessment and Plan Assessment and plan (1) High grade dysplasia in colonic adenoma: Status: Acute Assessment and plan: epidural catheter will be removed later this am and if pt continues to rogerio po intake and can move well then will discharge home later Subjective Subjective Interval history since last seen: Pain is minimal. occasional cramps relieved by flatus. drinking fluids and tolerating small amounts of food Exam GI Other: Abd, wounds clean, Bowel sounds present. Soft no tenderness except minimal around incision. WBC and lytes are normal Objective Last Vital Signs Temp 97.7 F 09/11/20 07:30 Pulse 66 09/11/20 07:30 Resp 18 09/11/20 07:30 BP 126/62 09/11/20 07:30 Pulse Ox 97 09/11/20 07:30 Laboratory Results - last 24 hr 09/11/20 09/11/20 06:45 06:45 WBC 5.71 RBC 3.17 L Hgb 11.0 L Hct 32.4 L MCV 102.2 H MCH 34.7 H MCHC 34.0 RDW 12.4 Plt Count 173 MPV 10.8 Immature Gran % 0.5 Neutrophils % 73.6 Lymphocytes % 19.3 Monocytes % 6.0 Eosinophils % 0.4 Basophils % 0.2 Nucleated RBC % 0 Absolute Neutrophils 4.21 Absolute Lymphocytes 1.10 L Absolute Monocytes 0.34 Absolute Eosinophils 0.02 Absolute Basophils 0.01 Sodium 140 Potassium 3.7 Chloride 106 Carbon Dioxide 26.9 Anion Gap 7.1 BUN 4 L Creatinine 0.6 Estimated GFR/1.73 m2 >= 60.00 Glucose 86 Calcium 7.9 L
[2020-09-11] MEDS: ACETAMINOPHEN 1,000 MG/100 ML BTL 400 MG IVPB (10:02)
[2020-09-11] MEDS: Normal Saline 500 ML 100 ML IV (10:02)
[2020-09-11] MEDS: Normal Saline Flush 10 ML SYR ×2 (10:16→14:55)
--- NOTE | 2020-09-11 10:38 | PDOC.ANES ---
Date of service: 09/11/20 Time of Service: 10:38 Anesthesia Note Anesthesia Daily Epidural Maintenance Day 2 Rounded on patient s/p laparoscopic colectomy day one. A&O x4. She states her level of pain is at a 0-3/10. 4/4 strength in all extremities and ambulatory.The patient is very eager to have the epidural removed and to be discharged. Epidural site without swelling/redness/discharge at 12cm at skin/dressing intact, infusion stopped and herrera catheter to be removed. Will reassess early afternoon and discharge if appropriate. Discussed plan with patient at length and she expressed understanding. .
--- NOTE | 2020-09-11 11:07 | PDOC.CMPRO ---
- If Service Date Differs Date of service: 09/11/20 Time of Service: 11:07 Care Management Progress Note S/O:Kiya was sitting up in a chair when CM met with her. She was smiling and pleasant and stated that she is feeling better. She shared that she has been told that she may be discharged home later today if she continues to do well. She has tolerated an regular diet, her pain is controlled and she is voiding and has had a BM. Kiya stated that she will be happy to get home and sleep in her own bed. A: Kiya is a 50 year old woman admitted on 09/09/20 for a bowel resection P: Kiya will likely be discharged home with no new services however it is possible that she may need home health, depending on wound care needs. Kiya will follow up with her surgeon and discharge plan of care and transport with family. CM will continue to support Kiya, her family and discharge considerations.
--- NOTE | 2020-09-11 13:17 | W.NUTRFU ---
Date of service: 09/11/20 Time of Service: 13:17 Nutritional Follow up NOTE: Pt admitted and s/p bowel resection for precancerous polyps. BMI wnl. Diet advanced to post op soft diet with excellent intake. Not at nutritional risk at this time. Will continue to follow. Time Spent in Nutritional Counseling and Treatment: 0
[2020-09-11] MEDS: Pantoprazole 40 MG VIAL IVP (14:55)
--- NOTE | 2020-09-11 16:33 | DSE_ITS ---
Date of service: 09/11/20 Time of Service: 16:34 DS: Diagnosis Discharge Diagnosis (1) High grade dysplasia in colonic adenoma: Status: Acute Asessment and Plan: 50-year-old woman who was found to have polyp in her right colon with high-grade dysplasia. She underwent a laparoscopic right hemicolectomy by Dr. Lewis on 09/09/2020. Her recovery was entirely uneventful. She regained GI function on the first postop day and tolerated a clear liquid diet. She was advanced to regular diet on the second postop day. Her epidural catheter was discontinued and her pain was easily controlled. She was able to be discharged tolerating diet and will be followed in the office. Pathology is pending at the time of this dictation Discharge Plan Disposition Patient Disposition: HOME Condition: Good Discharge Details Reason For Visit: PRE-MALIGNANT POLYP WITH HIGH GRADE DYSPLACIA Admit Date/Time: 09/09/20 07:08 Admit Provider: Iris Lewis Attending Provider: Iris Lewis Primary Care Provider: [facility] Hospital Course: 50-year-old woman who was found by Dr. Lewis to have a polyp in right colon with high-grade dysplasia. She underwent uneventful right hemicolectomy laparoscopically on 09 09. Postoperatively her course was entirely uneventful. She was started on clear liquid diet on the first postop day which tolerated well. This was advanced to regular diet on second postop day. She was discharged with a soft abdomen passing gas and clean incision will be followed as an outpatient in the office pathology is pending at the time of this dictation Home Meds and New Rx's Prescriptions: No Action ketoconazole 2 % cream 1 applic topical DAILY Qty: 15 RF: 0 fluconazole [Diflucan] 150 mg tablet 150 mg PO ONCE Qty: 1 RF: 0 hydroxyzine HCl 25 mg tablet 25 - 50 mg PO HS PRN (Reason: itching) Qty: 30 RF: 2 budesonide-formoterol [Symbicort] 80-4.5 mcg/actuation HFA aerosol inhaler 2 puff Inhalation BID Qty: 1 RF: 6 trazodone 50 mg tablet 50 mg PO QHS PRN (Reason: sleep) Qty: 30 RF: 2 bisacodyl [Dulcolax (bisacodyl)] 5 mg tablet,delayed release (DR/EC) 5 mg PO ONCE Qty: 4 RF: 0 polyethylene glycol 3350 17 gram powder in packet 255 g PO DAILY Qty: 15 RF: 0 neomycin 500 mg tablet See Rx Instructions PO .COMPLEX Qty: 8 RF: 0 metronidazole 500 mg tablet See Rx Instructions PO .COMPLEX Qty: 8 RF: 0 ondansetron HCl [Zofran] 4 mg tablet 8 mg PO Q8H Qty: 6 RF: 0 omeprazole 40 mg capsule,delayed release(DR/EC) 40 mg PO DAILY Qty: 90 RF: 4 carisoprodol 350 mg tablet 350 mg PO TID PRN (Reason: muscle pain) Qty: 25 RF: 0 albuterol sulfate [ProAir HFA] 90 mcg/actuation HFA aerosol inhaler 1 - 2 puff Inhalation QID PRN (Reason: bronchospasm) Qty: 1 RF: 5 triamcinolone acetonide 0.1 % cream 1 applic TP BID PRN (Reason: dermatitis) Qty: 30 RF: 3 Discharge Instructions Instructions: Colectomy (DC), Colectomy (GEN) Additional Instructions: please call the surgery offic for a follow up next week with Dr Ren. Gradually advance your diet to regular Return for increased pain fever or vomitting Stand Alone Forms: Nursing Discharge Form Referrals: Iris Lewis MD [ [facility] STAFF PHYSICIAN] - (please call for appt) Activity:: lifting under 30 lbs Equipment/Supplies:: No Equipment Needed Diet:: As Tolerated Discharge Orders Discharge Orders: Discharge Order (Routine); Ordered 09/11/20 Ordered By: Paul Harris Discharge Data Discharge Date/Time-TO BE ENTERED AT DEPARTURE: 09/11/20 17:17 DS: Summary Time Spent with Patient providing and/or coordinating discharge services: Less than 30 minutes Status at Discharge Functional status at discharge: independent ambulation Overall status at discharge: patient is progressing back to baseline Mental Status: mental status grossly normal Speech and Movement: speech and movement normal Mood: congruent mood Affect: normal affect Exam Psych Mental Status: mental status grossly normal Speech and Movement: speech and movement normal Mood: congruent mood Affect: normal affect DS: Data Vitals/I&O Vitals and I&O: Vital Signs Temperature 95.9 F L 09/11/20 15:39 Temperature Source Tympanic 09/11/20 15:39 Pulse 59 L 09/11/20 15:39 Pulse Rhythm Regular 09/11/20 05:05 Respiratory Rate 18 09/11/20 15:39 Respiratory Effort Non-Labored 09/11/20 05:05 Respiratory Depth Normal 09/11/20 05:05 Respiratory Pattern Normal 09/11/20 05:05 Blood Pressure 126/73 09/11/20 15:39 Pulse Oximetry 100 09/11/20 15:39 Respiratory End-tidal CO2 30 09/09/20 13:10 Oxygen Delivery Method Room Air 09/11/20 15:39 Oxygen Flow Rate 0 09/11/20 15:39 Pain Level 0 09/11/20 13:44 Comment 09/09/20 14:50 Intake & Output 09/10/20 09/11/20 09/11/20 23:59 11:59 23:59 Intake Total 3020 / 5120.666 2697.500 / 3333.750 636.25 / 3333.750 Output Total 1825 / 3275 2875 / 3475 600 / 3475 Balance 1195 / 1845.666 -177.500 / -141.250 36.25 / -141.250 Intake: IV 1850 / 2620.666 1667.500 / 1943.750 276.25 / 1943.750 Oral 1170 / 2500 1030 / 1390 360 / 1390 Output: Urine 1825 / 3275 2875 / 3475 600 / 3475 Other: Urine Color Yellow Yellow Yellow Urine Appearance Clear Clear Clear Urine Odor Normal None Comment Void x1 in the toilet. Stool Size Large Stool Characteristics Soft Formed Brown Voiding Methods Toilet Toilet Data Completed and Pending Labs on day of discharge: Labs from last 24 hours 09/11/20 09/11/20 06:45 06:45 WBC 5.71 RBC 3.17 L Hgb 11.0 L Hct 32.4 L MCV 102.2 H MCH 34.7 H MCHC 34.0 RDW 12.4 Plt Count 173 MPV 10.8 Immature Gran % 0.5 Neutrophils % 73.6 Lymphocytes % 19.3 Monocytes % 6.0 Eosinophils % 0.4 Basophils % 0.2 Nucleated RBC % 0 Absolute Neutrophils 4.21 Absolute Lymphocytes 1.10 L Absolute Monocytes 0.34 Absolute Eosinophils 0.02 Absolute Basophils 0.01 Sodium 140 Potassium 3.7 Chloride 106 Carbon Dioxide 26.9 Anion Gap 7.1 BUN 4 L Creatinine 0.6 Estimated GFR/1.73 m2 >= 60.00 Glucose 86 Calcium 7.9 L [facility] Medical History Anxiety Asthma Colorectal polyp detected on colonoscopy 05/26: hyperplastic polyps, tubular adenomas, sessile serrated. Cubital tunnel syndrome on left Depressive disorder RX for Celexa in November of 2008-her father was ill and DX'd with glioma. Has taken Celexa in the past, which worked for her. No Suicidal ideation or feelings of sadness. Dysfunctional uterine bleeding Fracture of femur (07/07/86) Gastritis (04/28/16) gastroscopy : active reflux esophagitis/no H.Pylori/no intestinal dysplasia or metaplasia Gastroesophageal reflux disease with esophagitis per EGD 10/05/10 History of endometrial biopsy 08/20/19 Internal hemorrhoids (04/28/16) Irritable colon : normal colonoscopy 2008: question of lactose intolerance; intermittent rectal bleeding; abdominal bloating, cramping and reflux. Colonoscopy and EGD (Dr. Blount) in 2008 revealed tubular adenoma and the EGD s were negative. Migraine Sessile colonic polyp (04/26/16) colonoscopy -2015 Tubular adenoma 2008 colono: Tubular colonoscopy/ Surgical History Colonoscopy - MAC (05/08/19) 2008- Tubular adenoma 2015- Villous serrated adenoma Dilation and curettage (~2005) DR. CLIFFORD EGD - MAC (~2015) 2006 Fracture, Open Treatment L FEMUR History of bilateral ligation of fallopian tubes History of endometrial ablation History of open reduction and internal fixation (ORIF) procedure Family History Mother No problems noted. Father , AGE 62 Heart disease Brain cancer Brother Depression Paternal Grandfather Diabetes Hyperlipidemia Hypertension Maternal Grandmother Asthma Paternal Grandmother Heart disease Neoplasm Son No problems noted. Son Asthma Daughter No problems noted. Social History Smoking/Tobacco Use Status: Current every day Tobacco Type: cigarettes Years smoked: 30 Quit status: considering quitting Second Hand Exposure: No Smoking risk assessment performed?: Yes Alcohol Intake: current Alcohol Intake frequency: 3 or more drinks per day Alcohol type: beer Drug use: Never Substance use type: does not use Caregiver/Support person: No Household members: significant other Housing: house Number of Children: 3 Communication Needs: None Do you need help understanding health information?: Always Pets and animals: Yes Pets and animals: dog(s) and horse(s) Sexually active: Yes Do you think of yourself as: straight/heterosexual Current gender identity: female What is your relationship status?: How often do you talk on the phone with friends or family?: three or more times per week How often do you get together with friends or relatives?: three or more times per week How often do you attend yazdanism or orthodoxy services?: decline to answer Do you belong to any clubs or organized social groups?: yes Panel score (0-1 are the most socially isolated patients): 2 Duration: 15-30 minutes/day Frequency: 1-2 times per week Kathy/Hinduism: No preference Special kathy needs: No Seatbelt use: always Helmet use: Yes Helmet use: always Drive intox or ride w/intox hammer driver: No Do you feel safe at home: Yes Do you feel safe in your relationship?: Yes
== END 2020-09-11 17:17 | disposition home or self-care (01) | DRG 331 ==
LOC: MS 13:42
PROVIDERS: Admitting Provider Surgery; PCP Family Medicine; Visit Provider Surgery
PROC: 0DTE4ZZ Resection of Large Intestine, Percutaneous Endoscopic Approach (ICD-10-PCS; CPT 44210; principal; 2020-09-09 07:30)
DX: D12.2 Benign neoplasm of ascending colon (principal); J45.909 Unspecified asthma, uncomplicated; K21.9 Gastro-esophageal reflux disease without esophagitis; G43.909 Migraine, unspecified, not intractable, without status migrainosus; F32.9 Major depressive disorder, single episode, unspecified; F41.9 Anxiety disorder, unspecified
CPT/HCPCS: 44204; 36415; 80048; 99232; 99238; J1650; NC; 85025; 88307; J0131; J0295; J1100; J1885; J2001; J2250; J2405; J2704; J3475

== ENCOUNTER 2020-12-25 02:12 | Outpatient (CLI) | payer BC, SELFPAY ==
--- NOTE | 2020-12-25 11:06 | DI.MAMMO_ITS ---
Exam(s) MAMMO SCREENING EXAM: MAMMO SCREENING CLINICAL HISTORY: screening,Z12.39. TECHNIQUE: Bilateral full field digital CC and MLO mammographic images were obtained with 3D tomosyn thesis and utilizing computer aided detection (CAD). COMPARISON: Prior mammograms dating back to 2012, the most recent being December 2019. FINDINGS: There are no new spiculated masses nor malignant appearing microcalcification groups. There is no significant architectural distortion nor skin thickening-retraction. IMPRESSION: No radiographic evidence of malignancy. BI-RADS Category 1 - Negative Breast Density - Category B - Scattered areas of fibroglandular density Breast density Category C or D implies that the patient has dense breast tissue. Dense breast tissue can make it harder to find cancer on a mammogram. Dense breast tissue is also associated with an incr eased risk of breast cancer. This information about the result of the mammogram report was provided to the patient to raise their awareness. Use this report when you speak with the patient about their risks for breast cancer, which includes their family history. At that time, you may recommend additional screening tests (Ultrasoun d or MRI) as these tests may add significant information. A negative radiographic report should not delay biopsy if a dominant or clinically suspicious mass is present. Up to ten percent of cancers are not identified on mammography. A negative report may reinforce clinical impression. Adenosis and dense breasts may obscure an underlying neoplasm. False positive reports average 6 to 10%. Patient will receive a letter notifying them of these results.
== END 2020-12-25 02:32 ==
PROVIDERS: PCP Family Medicine; Visit Provider Family Medicine
DX: Z12.31 Encounter for screening mammogram for malignant neoplasm of breast (principal)
CPT/HCPCS: 77063; 77067

== ENCOUNTER 2021-12-11 03:03 | Outpatient (CLI) | payer BC, SELFPAY ==
[2021-12-11 08:32] LABS: HCT 37.3 % (36.0-46.0); HGB 12.8 g/dL (11.2-15.7); MCH 34.3 pg (27.0-33.0); MCHC 34.3 % (32.0-36.0); MCV 100 fL (80-95); MPV 9.6 fL (8.0-11.0); Platelet Count 201 10^3/uL (130-400); RBC 3.73 10^6/uL (3.93-5.22); RDW 12.1 % (11.7-14.6); RDW-SD 44.4 fL
[2021-12-11 09:22] LABS: Hemoglobin A1C 5.5 % (<5.7)
[2021-12-11 10:45] LABS: Calculated LDL 132 mg/dL (<100); Cholesterol 231 mg/dL (<200); HDL Cholesterol 88 mg/dL (40-60); TSH (W/Ref FT4) 1.56 uIU/mL (0.36-3.74); Triglyceride 56 mg/dL (<150); Vitamin B12 190 pg/mL (193-986)
[2021-12-11 16:50] LABS: BUN 12 mg/dL (7-18); CREATININE 0.7 mg/dL (0.55-1.02); Calcium 8.7 mg/dL (8.5-10.1); Chloride 99 mmol/L (98-107); Glucose 94 mg/dL (74-106); Potassium 4.6 mmol/L (3.5-5.1); Sodium 136 mmol/L (136-145)
[2021-12-12 09:19] LABS: HIV-1/2 Ag & Ab Screen Negative (Negative)
[2021-12-14 11:33] LABS: Hepatitis C Ab w Rflx HCV PCR Negative (Negative)
== END 2021-12-11 03:04 | disposition home or self-care (01) ==
LOC: LBO 03:03
PROVIDERS: PCP Family Medicine; Visit Provider Family Medicine
DX: R53.83 Other fatigue (principal); Z13.6 Encounter for screening for cardiovascular disorders; Z13.1 Encounter for screening for diabetes mellitus; Z11.59 Encounter for screening for other viral diseases; Z11.4 Encounter for screening for human immunodeficiency virus [HIV]; Z86.16 Personal history of COVID-19
CPT/HCPCS: 36415; 80048; 80061; 85027; 86803; 87389; 82607; 83036; 84443

== ENCOUNTER 2021-12-23 08:28 | Day surgery (SDC) | payer BC, SELFPAY ==
--- NOTE | 2021-12-23 06:49 | W.COLOREPORT ---
Colonoscopy Report Date of procedure: 12/23/21 Pre-op diagnosis general: Hx of polyps Post-op diagnosis procedure note: same Procedure: Colonoscopy with polypectomy Surgeon: Iris Lewis Anesthesia Type: General:No Airway Estimated blood loss (mL): 2 Pathology: other (descending polyp and sigmoid polyp) Complications: None Disposition: same day Indications: Kiya is back to see me to discuss a screening colonoscopy.? She had a colonoscopy last year was noted to have a sessile polyp in the sigmoid colon with high-grade dysplasia.? She underwent a laparoscopic resection.? She has done well since then.? We reviewed the procedure again in detail as well as the risks and benefits.? We went over her prep.? Although she is a smoker she is not have any respiratory type symptoms so I will not test her for COVID. Risks, benefits and complications have been reviewed. Complications include but are not limited to bleeding, pain, perforation, missed small lesion/polyp, sore throat, aspiration and adverse reaction to the medications. Questions were entertained and answered to their satisfaction and they wished to proceed. No guarantees were given or implied. Proceed with colonoscopy under sedation Prep: Miralax/Dulcolax Procedure Start Time: 09:26 Procedure End Time: 09:51 Retraction Time: 11 minutes Findings: 2 small polyps Procedure Description: After informed consent was obtained the patient was taken to the procedure room and placed in a left decubitous position. Monitors were applied and a time out was done. The patients name, date of , procedure, allergies to medications and metal in their body was reviewed. The patient was then sedated. Once sedated and comfortable a rectal exam was done. External exam was normal. Internal exam revealed a normal sphincter tone and no palpable masses. The scope was then introduced and retro-flexed. No internal hemorrhoids, polyps or masses were identified on retro-flexion. The scope was then advanced to the cecum without difficulty. The ileocecal vlave and appendiceal orifice were identified. The prep was adequate. The scope was then slowly retracted over 11 minutes back into the rectum. Polyps were removed with cold forceps in the descending and sigmoid colon. There was no diverticulosis noted. The scope was removed and the patient was woken up and taken back to Same day surgery in stable condition. The patient tolerated the procedure well and there were no immediate complications. Follow up: The patient should follow up in 3 years unless they develop changes in bowel habits or other new gastrointestinal complaints.
--- NOTE | 2021-12-23 06:50 | W.PM.DSUDISC ---
Discharge Plan Disposition Patient Disposition: HOME Condition: Good Discharge Details Reason For Visit: Colonoscopy Attending Provider: Iris Lewis Primary Care Provider: Harman Yost Home Meds and New Rx's Prescriptions: Continued carisoprodol 350 mg tablet 350 mg PO TID PRN (Reason: muscle pain) Qty: 25 0RF budesonide-formoterol [Symbicort] 80-4.5 mcg/actuation HFA aerosol inhaler 2 puff Inhalation BID Qty: 1 6RF Rx Instructions: take 2 puffs twice a day triamcinolone acetonide 0.1 % cream 1 applic TP BID PRN (Reason: dermatitis) Qty: 30 3RF albuterol sulfate [ProAir HFA] 90 mcg/actuation HFA aerosol inhaler 1 - 2 puff Inhalation QID PRN (Reason: bronchospasm, wheeze) Qty: 1 5RF hydroxyzine HCl 25 mg tablet 25 - 50 mg PO HS PRN (Reason: itching) Qty: 30 2RF Rx Instructions: take 1 to 2 tablets at bedtime as needed omeprazole 40 mg capsule,delayed release(DR/EC) See Rx Instructions .ROUTE .COMPLEX Qty: 90 3RF Dose Instruction: TAKE 1 CAPSULE BY MOUTH DAILY Rx Instructions: TAKE 1 CAPSULE BY MOUTH DAILY trazodone 50 mg tablet 25 mg PO QHS PRN (Reason: sleep) Discontinued bisacodyl [Dulcolax (bisacodyl)] 5 mg tablet,delayed release (DR/EC) 5 mg PO ONCE Qty: 4 0RF Rx Instructions: Take according to provider's instructions for colonoscopy prep. polyethylene glycol 3350 17 gram/dose powder 17 g PO ONCE Qty: 238 0RF Rx Instructions: To be taken as directed by prescriber's office for colonoscopy prep. Discharge Instructions Additional Instructions: Findings: 2 small polyps Follow up: hopefully 3 years Please call if you develop: fevers >101.5 Nausea or Vomiting Abdominal pain that is not transient Rectal bleeding that is more then a tbsp A hard abdomen and inability to pass gas DAY SURGERY UNIT POST ENDOSCOPY INSTRUCTIONS Instructions for everyone who is given Anesthesia: For your safety, please do the following for the next 24 Hours: a. Do not drive or operate dangerous equipment b. Do not drink alcohol beverages or use any recreational drugs for the first 24 hours or while taking pain medications. The medications in your body may have a reaction that can be dangerous. c. Do not make any important decisions or sign any important papers 1. Generally there are no restrictions on your activity after a day or so has gone by, but you may feel a bit fatigued for a few days. 2. After you arrive home you may have a light meal and return to a normal diet as you can tolerate it without feeling sick to your stomach. 3. After surgery, you may feel pain or discomfort. This should be only transient, but if it persists please contact your doctor. 4. If there are any questions regarding the findings of your procedure, please feel free to contact your doctor. 6. If you are unable to contact your doctor with a problem, contact the hospital at [phone]. 7. Continue all your regular medications unless directed otherwise. I understand the above instructions and have no questions. Signature of Patient or Responsible Adult Escort Date/Time Name of Responsible Adult Escort Signature of Nurse Date/Time Activity:: Activity as Tolerated Diet:: As Tolerated Discharge Orders Discharge Orders: Discharge Order (Routine); Ordered 12/23/21 Ordered By: Iris Lewis
[2021-12-23 08:43] VITALS: BP 132/86; PULSE 80; RESP 17; TEMP 36.8; O2SAT 99
[2021-12-23] MEDS: Lactated Ringers 1,000 ML 80 ML IV (08:59)
--- NOTE | 2021-12-23 09:04 | W.ANESPRE ---
General Info Date of Service Date Performed: 12/23/21 Height: 5 ft 4 in Weight: 69.5 kg Body Mass Index (BMI): 26.3 Surgical Procedure: Operation Date: 12/23/21 10:05 Proposed Procedure Side Surgeon p Colonoscopy Iris Lewis MD Meds Allergies and Home Medications Allergies Allergy/AdvReac Type Severity Reaction Status Date / Time No Known Drug Allergies Allergy Unverified 12/23/21 08:39 lactose AdvReac Unknown upsets Verified 12/23/21 08:39 stomach Home Medication Medication Instructions Recorded carisoprodol 350 mg tablet 350 mg PO TID PRN muscle pain #25 10/22/19 tabs budesonide-formoterol HFA 80 2 puff inhalation BID ##1 11/10/20 mcg-4.5 mcg/actuation aerosol inhaler (Symbicort) triamcinolone acetonide 0.1 % 1 applic topical BID PRN 11/21/20 topical cream dermatitis #30 grams albuterol sulfate 90 mcg/actuation 1 - 2 puff inhalation QID PRN 08/21/21 aerosol inhaler (ProAir HFA) bronchospasm, wheeze ##1 hydroxyzine HCl 25 mg tablet 25 - 50 mg PO HS PRN itching #30 08/31/21 tab-caps omeprazole 40 mg capsule,delayed See Rx Instructions .Route 10/14/21 release .COMPLEX #90 caps bisacodyl 5 mg tablet,delayed 5 mg PO ONCE #4 tabs 12/11/21 release (Dulcolax (bisacodyl)) polyethylene glycol 3350 17 17 g PO ONCE #238 grams 12/11/21 gram/dose oral powder trazodone 50 mg tablet 25 mg PO QHS PRN sleep 12/23/21 Current Visit Medications: Current Medications Generic Name Dose Route Start Last Admin Trade Name Freq PRN Reason Stop Dose Admin Hyoscyamine Sulfate 0.125 mg 12/23/21 06:50 Hyoscyamine 0.125 Mg Sl/Oral/Chew SL DIRECTED PRN Ringer's Solution 1,000 mls @ 80 mls/hr 12/23/21 06:00 12/23/21 08:59 IV 01/21/22 23:59 80 mls/hr INFUSION GIULIANO Administration IV Miscellaneous Supplies 1 each 12/23/21 06:00 Iv Access IV 01/21/22 23:59 DIRECTED GIULIANO Ondansetron HCl 4 mg 12/23/21 06:50 Ondansetron 4 Mg/2 Ml Vial IVP Q4H PRN PRN Nausea / Vomiting Sodium Chloride 0 ml 12/23/21 06:00 Normal Saline Flush 10 Ml Syr IV 01/21/22 23:59 PRN PRN Sodium Chloride 0 ml 12/23/21 06:00 Normal Saline 10 Ml Vial IJ 01/21/22 23:59 DIRECTED PRN Sterile Water 0 ml 12/23/21 06:00 Water,Injection,Sterile 10 Ml Vial IJ 01/21/22 23:59 DIRECTED PRN PFSH Active Problems Active Problems: Problem Status Onset Code Anxiety F41.9 Asthma J45.909 Depressive disorder F32.9 Duodenitis 04/28/16 K29.80 Dysfunctional uterine bleeding N93.8 Gastritis 04/28/16 K29.70 Gastroesophageal reflux disease with esophagitis K21.0 Internal hemorrhoids 04/28/16 K64.8 Migraine G43.909 High grade dysplasia in colonic adenoma D12.6 Sessile colonic polyp K63.5 COVID-19 U07.1 COPD (chronic obstructive pulmonary disease) J44.9 Nicotine dependence F17.200 Medical History Medical History Anxiety Asthma Fracture of femur (07/07/86) History of endometrial biopsy 08/20/19 Irritable colon -2015: normal colonoscopy 2008: question of lactose intolerance; intermittent rectal bleeding; abdominal bloating, cramping and reflux. Colonoscopy and EGD (Dr. Blount) in 2008 revealed tubular adenoma and the EGD s were negative. Migraine Sessile colonic polyp (04/26/16) colonoscopy -2015 Tubular adenoma 2008 colono: Tubular colonoscopy/ Surgical History Surgical History Colonoscopy - MAC (05/08/19) 2008- Tubular adenoma 2015- Villous serrated adenoma Dilation and curettage (~2005) DR. CLIFFORD EGD - MAC (~2015) 2005 Fracture, Open Treatment L FEMUR History of bilateral ligation of fallopian tubes History of endometrial ablation History of open reduction and internal fixation (ORIF) procedure S/P laparoscopic-assisted sigmoidectomy Tobacco Smoking/Tobacco Use Status: Current every day Tobacco Type: e-cigarettes Passive smoking exposure: No Second hand exposure: No Alcohol Alcohol Intake: current Alcohol intake frequency: a few times a week Alcohol type: beer Substance Use Substance use: Never Substance use type: does not use Vital Signs and Lab Results Vital Signs Most Recent Vital Signs in EMR: Most Recent Vital Signs Temp Pulse Resp BP Pulse Ox 36.8 C 80 17 132/86 99 12/23/21 08:43 12/23/21 08:43 12/23/21 08:43 12/23/21 08:43 12/23/21 08:43 Lab Results Blood Type / Crossmatch: No Data to Display Complete Blood Count: White Blood Count 4.00 10^3/uL (4.4-10.8) L 12/11/21 08:25 Red Blood Count 3.73 10^6/uL (3.93-5.22) L 12/11/21 08:25 Hemoglobin 12.8 g/dL (11.2-15.7) 12/11/21 08:25 Hematocrit 37.3 % (36.0-46.0) 12/11/21 08:25 Platelet Count 201 10^3/uL (130-400) 12/11/21 08:25 Complete Metabolic Panel: Sodium Level 136 mmol/L (136-145) 12/11/21 08:25 Potassium Level 4.6 mmol/L (3.5-5.1) 12/11/21 08:25 Chloride Level 99 mmol/L (98-107) 12/11/21 08:25 Carbon Dioxide Level 26.0 mmol/L (21.0-32.0) 12/11/21 08:25 Blood Urea Nitrogen 12 mg/dL (7-18) 12/11/21 08:25 Creatinine 0.7 mg/dL (0.55-1.02) 12/11/21 08:25 Estimated GFR/1.73 m2 >= 60.00 (mL/min/1.73m2) 12/11/21 08:25 Calcium Level 8.7 mg/dL (8.5-10.1) 12/11/21 08:25 Glucose Level 94 mg/dL (74-106) 12/11/21 08:25 Hemoglobin A1c 5.5 % (<5.7) 12/11/21 08:25 Liver Function Panel: No Data to Display Coagulation Panel: No Data to Display Cardiac Panel: No Data to Display Arterial Blood Gas: No Data to Display Venous Blood Gas: No Data to Display Pancreas Panel: No Data to Display Thyroid Panel: Thyroid Stimulating Hormone (TSH) 1.56 uIU/mL (0.36-3.74) 12/11/21 08:25 Infectious Disease: HIV (1&2) Ag and Ab, 4th Generation Negative (Negative) 12/11/21 08:25 Hepatitis C Antibody Negative (Negative) 12/11/21 08:25 Blood Cultures: No Data to Display Toxicology Panel: No Data to Display Panel: No Data to Display Anesthesia Assessment and Plan Anesthesia History Personal History: No History of Anesthesia Complications Family History: No Family History of Anesthesia Complications Exercise Tolerance Exercise Tolerance: Metabolic Equivalents>4 Pertinent Negatives Pertinent Negatives: No Symptoms of GERD, No Major Cardiovascular Symptoms or Complaints and No History of CVA/TIA Cardiac & Pulmonary Exam Cardiac Exam: Normal S1/S2 Heart Sounds Pulmonary Exam: Clear Bilateral Breath Sounds Implantable Cardiac Device Does patient have a Pacemaker or an ICD?: No Airway Exam Known Difficult Airway: No Mallampati Class: 2 Mouth Opening: Normal (> 3cm) Thyromental Distance: Greater than 3 cm Neck Range of Motion: Full ROM Neck Circumference: Normal Teeth Condition: Normal Dentition ASA Classification ASA Score: ASA 2 Emergency Case?: No NPO Status NPO Status: NPO Clears >2 hours, Solids >8 hours Status Status: Negative HCG Anesthesia Plan Resuscitation Status: Full Code Anesthesia Technique: General Anesthesia Airway Planned: Natural Airway Monitors Used: Standard Monitors
[2021-12-23 09:20] VITALS: BMI 26.3
--- NOTE | 2021-12-23 09:48 | BOWEL_PTH ---
PATIENT: Kiya Lewis LOC: [facility] U#:[id number] AGE/SX: 51/F ROOM: RE12/23/[address]: Iris Lewis MD : 1970 BED: DIS: 12/23/2021 SPEC #: [id number] RECD: 12/23/21 12:43 STATUS: KIRILL REQ #: [id number] STORM: 12/23/21 09:[address]: Iris Lewis DEPT: Surgical Specimen RECD BY: Marcelle Little ENTERED: 12/23/21 12:44 SP TYPE: Bowel OTHR DR: Harman Yost Tissues: 1 - BIOPSY BOWEL 2 - BIOPSY BOWEL Procedures: GROSS AND MICRO LEVEL 4 Comments: [id number]
[2021-12-23 10:01] VITALS: BP 134/67; PULSE 56; RESP 17; TEMP 36.4; O2SAT 100
[2021-12-23 10:18] VITALS: BP 124/87; PULSE 59; RESP 18; TEMP 36.6; O2SAT 100
--- NOTE | 2021-12-23 10:44 | W.ANESPOSTOP ---
Postoperative Evaluation Date, Time and Location Date Performed: 12/23/21 Time Performed: 09:44 Patient Location: Day Surgery Unit Vital Signs Most Recent Imported Vital Signs: Most Recent Vital Signs Temp Pulse Resp BP Pulse Ox 36.6 C 59 L 18 124/87 100 12/23/21 10:18 12/23/21 10:18 12/23/21 10:18 12/23/21 10:18 12/23/21 10:18 Pain Score Most Recent Pain Score: Most Recent Pain Score Pain Level 0 12/23/21 08:43 Assessment Mental Status: Awake (Alert & Oriented to Patient Baseline) Airway and Respiratory Function: Patent airway with normal (patient baseline) respiratory exam Cardiovascular Function: Hemodynamically Stable Hydration Status: Adequately Hydrated Nausea & Vomiting: No Nausea or Vomiting Pain: Pt. Denies Any Pain Peripheral Nerve Block: Patient did not receive a nerve block Postoperative Comments:: Patient seen earlier today
== END 2021-12-23 10:33 | disposition home or self-care (01) ==
PROVIDERS: PCP Family Medicine; Visit Provider Surgery
PROC: 0DJD8ZZ Inspection of Lower Intestinal Tract, Via Natural or Artificial Opening Endoscopic (ICD-10-PCS; CPT 45378; principal; 2021-12-23 10:00)
DX: Z09 Encounter for follow-up examination after completed treatment for conditions other than malignant neoplasm (principal); Z86.010 Personal history of colon polyps; K63.5 Polyp of colon; F17.210 Nicotine dependence, cigarettes, uncomplicated
CPT/HCPCS: 45380; 81025; 88305

== ENCOUNTER → 2022-02-02 02:05 | Outpatient (CLI) | payer BC, SELFPAY ==
--- NOTE | 2022-02-02 06:45 | DI.MAMMO_ITS ---
Exam(s) MAMMO SCREENING EXAM: MAMMO SCREENING CLINICAL HISTORY: screening,z12.39 TECHNIQUE: Bilateral full field digital CC and MLO mammographic images were obtained with 3D tomosyn thesis and utilizing computer aided detection (CAD). COMPARISON: Available for comparison. FINDINGS: Masses/Architectural Distortion: None seen. Microcalcifications: No suspicious pleomorphic-type are seen. Skin Thickening/Nipple Retraction: None. IMPRESSION: 1. No significant interval change with no specific features of malignancy noted. 2. Unless there is more urgent need, screening mammography is recommended, as per [employer] guidelines. BI-RADS Category 1 - Negative Breast Density - Category C - Heterogeneously dense Breast density category C or D implies that the patient has dense breast tissue. Dense breast tissue is very common and is not abnormal but dense breast tissue can make it harder to find cancer on a ma mmogram. Also, dense breast tissue may increase their breast cancer risk. This information about the result of the mammogram report was provided to the patient to raise their awareness. Use this report when you speak with the patient about their risks for breast cancer, which includes their family hist ory. At that time, you may recommend for more screening tests (Ultrasound or MRI) as they might be us eful based on their risk. A negative radiographic report should not delay biopsy if a dominant or clinically suspicious mass is present. Up to ten percent of cancers are not identified on mammography. A negative report may reinforce clinical impression. Adenosis and dense breasts may obscure an underlying neoplasm. False positive reports average 6 to 10%. Patient will receive a letter notifying them of these results.
--- NOTE | 2022-02-02 07:54 | DI.CTLCSR_ITS ---
Exam(s) CT CHEST LUNG CANCER SCREEN EXAM: CT CHEST LUNG CANCER SCREEN CLINICAL HISTORY: Screening for lung cancer,current smoker, f17.200 TECHNIQUE: Imaging Protocol: Axial computed tomography images with coronal and sagittal reformatted images were created and reviewed COMPARISON: No exams were available for comparison FINDINGS: Tracheobronchial tree: Patent where visualized. Pulmonary parenchyma: No consolidation or dominant measurable mass. No architectural distortion. Lung Nodules: There is a 3 mm nodule in the right lower lobe. Mediastinum and Precious: No dominant adenopathy or fluid collection. The esophagus is unremarkable. Thyroid gland: Unremarkable. Lymph nodes: Unremarkable. Pleura: No effusion or pneumothorax. Heart: The heart is not dilated. Mild coronary artery calcification is present. No pericardial effus ion. Aorta: Thoracic aorta non-dilated. Upper abdomen: Unremarkable. Soft Tissues: Unremarkable. Bones: Within normal limits. IMPRESSION: 3 mm right lower lobe pulmonary nodule. Lung RADS Cat 2 - Benign Appearance / Behavior: Nodules with a very low likelihood of becoming a clin ically active cancer due to size or lack of growth Lung-RADS 1.0 CATEGORIES: Category 0 - Prior chest CT exam(s) being located for comparison. Category 1 - Annual screening in 12 months. No nodules or definitely benign nodules. Category 2 - Annual screening in 12 months. Benign appearance. Nodules with low likelihood of becomin g active cancer. Category 3 - 6-month follow-up. Probably benign. Short-term follow-up suggested. Nodules with low lik elihood of becoming active cancer. Category 4A - 3-month follow-up and CT/PET if >8 mm in size. Suspicious finding. Findings which requi re additional testing. Category 4B - Findings which require additional testing and tissue sampling. Suspicious finding. Category 4X - Category 3 or 4 nodules with additional features or imaging findings that increases the suspicion of malignancy. Modifier S- Potentially clinically significant finding. (Non lung cancer) RADIATION DOSE DELIVERED: 82.5mGy.cm Total DLP 1.84mGyCTDIvol 82.5mGy.cm Total DLP 1.84mGy CTDIvol DATA REPOSITORY: All CT scans at this facility are submitted to the National Radiology Data Registry (NRDR) Dose Index Registry (DIR) with the [employer] (A[employer]). RADIATION OPTIMIZATION: All CT scans at this facility use at least one of these dose optimization te chniques: automated exposure control; mA and/or kV adjustment per patient size (includes targeted exa ms where dose is matched to clinical indication); or iterative reconstruction.
== END ==
PROVIDERS: PCP Nurse Practitioner Family; Visit Provider Family Medicine
DX: Z12.31 Encounter for screening mammogram for malignant neoplasm of breast (principal); Z12.2 Encounter for screening for malignant neoplasm of respiratory organs; F17.210 Nicotine dependence, cigarettes, uncomplicated; R91.1 Solitary pulmonary nodule
CPT/HCPCS: 71271; 77063; 77067

== ENCOUNTER 2022-09-21 18:03 | Outpatient (REF) | payer OTHER, SELFPAY ==
[2022-09-22 14:08] LABS: Chlamydia Result Negative (Negative); GC Result Negative (Negative)
== END 2022-09-21 18:04 | disposition home or self-care (01) ==
LOC: LBN 18:03
PROVIDERS: PCP Nurse Practitioner Family; Visit Provider Nurse Practitioner Women's Health
DX: Z11.3 Encounter for screening for infections with a predominantly sexual mode of transmission (principal)
CPT/HCPCS: 87491; 87591

== ENCOUNTER 2023-02-07 01:34 | Outpatient (CLI) | payer OTHER, SELFPAY ==
--- NOTE | 2023-02-07 12:15 | DI.MAMMO_ITS ---
Exam(s) MAMMO SCREENING EXAM: MAMMO SCREENING CLINICAL HISTORY: screening TECHNIQUE: Mammograms were interpreted according to the usual protocol including computer analysis w [employer] CAD system, tomosynthesis and C-view imaging. COMPARISON: 2015 through 2021 FINDINGS: The breasts are composed of scattered fibroglandular densities, Breast Density category B. No suspicious masses or suspicious microcalcifications are seen. No skin thickening or abnormal axillary lymph nodes are seen. There has been no significant change from prior exams. IMPRESSION: BI-RADS Category 1, Negative mammogram Yearly screening mammography is recommended. Breast Density - Category B, scattered fibroglandular densities. A negative radiographic report should not delay biopsy if a dominant or clinically suspicious mass is present. Up to ten percent of cancers are not identified on mammography. A negative report may reinforce clinical impression. Adenosis and dense breasts may obscure an underlying neoplasm. False positive reports average 6 to 10%. Patient will receive a letter notifying them of these results.
== END 2023-02-07 01:54 ==
PROVIDERS: PCP Nurse Practitioner Family; Visit Provider Nurse Practitioner Women's Health
DX: Z12.31 Encounter for screening mammogram for malignant neoplasm of breast (principal)
CPT/HCPCS: 77063; 77067

== ENCOUNTER 2023-06-20 12:47 | Emergency (ER) | payer OTHER, SELFPAY ==
[2023-06-20 12:56] VITALS: BP 175/85; PULSE 68; RESP 20; TEMP 36.8; O2SAT 99
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
[2023-06-20] MEDS: Ketorolac 15 MG/ML VIAL IM (13:20)
[2023-06-20] MEDS: Acetaminophen 500 MG TAB 1000 MG PO (13:20)
[2023-06-20 13:21] VITALS: BP 178/81; PULSE 64; RESP 18; O2SAT 96
== END 2023-06-20 13:26 | disposition home or self-care (01) ==
LOC: ER 13:27
PROVIDERS: Emergency Provider Student in an Organized Health Care Education/Training Program; PCP Nurse Practitioner Family
DX: Z04.1 Encounter for examination and observation following transport accident (principal)
CPT/HCPCS: 96372; 99284; J1885

== ENCOUNTER 2023-10-27 20:22 | Emergency (ER) | payer OTHER, SELFPAY ==
[2023-10-27] VITALS (43 sets, daily range): BP systolic 125–201; BP diastolic 65–93; PULSE 58–70; RESP 15–20; TEMP 36.7–37.1; O2SAT 94–99
[2023-10-27 21:01] LABS: Abs Immature Grans 0.01 10^3/uL (0.0-0.06); Absolute Basophil Count 0.03 10^3/uL (0.0-0.2); Absolute Eosinophil Count 0.04 10^3/uL (0.0-0.7); Absolute Lymphocyte Count 1.59 10^3/uL (1.2-3.4); Absolute Monocyte Count 0.49 10^3/uL (0.1-0.8); Absolute Neutrophil Count 2.72 10^3/uL (1.2-6.7); Basophils % 0.6; Eosinophils % 0.8; HCT 38.2 % (36.0-46.0); HGB 12.9 g/dL (11.2-15.7); Immature Grans % 0.2; Lymphocytes % 32.6; MCH 33.8 pg (27.0-33.0); MCHC 33.8 % (32.0-36.0); MCV 100 fL (80-95); MPV 9.6 fL (8.0-11.0); Neutrophils % 55.8; Platelet Count 199 10^3/uL (130-400); RBC 3.82 10^6/uL (3.93-5.22); RDW 12.3 % (11.7-14.6); WBC 4.88 10^3/uL (4.4-10.8)
[2023-10-27] MEDS: Tranexamic Acid 1,000 MG/10 ML VIAL 1000 MG IVP (21:04)
--- NOTE | 2023-10-27 21:13 | ED.GENADUL_ITS ---
Discharge Plan Discharge Details Chief Complaint: FacialProb Primary Care Provider: Nash Velasco ED Provider: Fadi Schofield Home Meds and New Rx's Prescriptions: No Action lisinopril 10 mg tablet 10 mg PO DAILY Qty: 90 3RF dexamethasone 0.5 mg/5 mL elixir 0.5 mg PO TID Qty: 237 1RF triamcinolone acetonide 0.1 % cream 1 applic TP BID PRN (Reason: dermatitis) Qty: 30 3RF hydroxyzine HCl 25 mg tablet 25 - 50 mg PO HS PRN (Reason: itching) Qty: 30 2RF Rx Instructions: take 1 to 2 tablets at bedtime as needed albuterol sulfate [ProAir HFA] 90 mcg/actuation HFA aerosol inhaler 1 - 2 puff Inhalation QID PRN (Reason: bronchospasm, wheeze) Qty: 1 5RF budesonide-formoterol [Symbicort] 80-4.5 mcg/actuation HFA aerosol inhaler 2 puff Inhalation BID Qty: 30.6 3RF Rx Instructions: take 2 puffs twice a day cyanocobalamin (vitamin B-12) 1,000 mcg capsule 1,000 mcg PO DAILY Qty: 90 3RF omeprazole 40 mg capsule,delayed release(DR/EC) See Rx Instructions .ROUTE .COMPLEX Qty: 90 3RF Dose Instruction: TAKE 1 CAPSULE BY MOUTH DAILY Rx Instructions: TAKE 1 CAPSULE BY MOUTH DAILY estradiol 10 mcg tablet 10 mcg vaginal .COMPLEX 14 Days Qty: 24 4RF Rx Instructions: 10 mcg vaginally twice weekly; trazodone 50 mg tablet 25 mg PO QHS PRN (Reason: sleep) HPI General Mode of arrival: ambulatory . Date/Time Provider Initiated Documentation: 10/27/23 20:23 . Limitations to Documentation: no limitations . Information obtained by: patient . HPI Narrative: 53-year-old female that presents with severe upper lip swelling. Patient has a history of hypertension and has been taking lisinopril for the past 4 to 5 months. She notes she was struck in the upper lip by a gourd that fell from her bird house around 4 PM today. She subsequently developed severe and progressive swelling of her upper lip. She has no tongue swelling or difficulty breathing. Related Data Home Medications Medication Instructions Recorded Confirmed triamcinolone acetonide 0.1 % 1 applic topical BID PRN 11/21/20 10/27/23 topical cream dermatitis #30 grams hydroxyzine HCl 25 mg tablet 25 - 50 mg (1 - 2 x 25 mg) PO HS 08/31/21 10/27/23 PRN itching #30 tab-caps trazodone 50 mg tablet 25 mg PO QHS PRN sleep 12/23/21 10/27/23 albuterol sulfate 90 mcg/actuation 1 - 2 puff inhalation QID PRN 11/10/22 10/27/23 aerosol inhaler (ProAir HFA) bronchospasm, wheeze ##1 budesonide-formoterol HFA 80 2 puff inhalation BID #30.6 grams 11/10/22 10/27/23 mcg-4.5 mcg/actuation aerosol inhaler (Symbicort) cyanocobalamin (vitamin B-12) 1,000 mcg PO DAILY #90 caps 11/10/22 10/27/23 1,000 mcg capsule omeprazole 40 mg capsule,delayed See Rx Instructions .Route 11/10/22 10/27/23 release .COMPLEX #90 caps lisinopril 10 mg tablet 10 mg PO DAILY #90 tabs 07/06/23 10/27/23 dexamethasone 0.5 mg/5 mL oral 0.5 mg (5 mL) PO TID #237 mL 09/30/23 10/27/23 elixir estradiol 10 mcg vaginal tablet 10 mcg vaginal .COMPLEX 2 weeks 10/17/23 10/27/23 #24 tabs Previous Rx's Medication Instructions Recorded triamcinolone acetonide 0.1 % 1 applic topical BID PRN 11/21/20 topical cream dermatitis #30 grams hydroxyzine HCl 25 mg tablet 25 - 50 mg (1 - 2 x 25 mg) PO HS 08/31/21 PRN itching #30 tab-caps albuterol sulfate 90 mcg/actuation 1 - 2 puff inhalation QID PRN 11/10/22 aerosol inhaler (ProAir HFA) bronchospasm, wheeze ##1 budesonide-formoterol HFA 80 2 puff inhalation BID #30.6 grams 11/10/22 mcg-4.5 mcg/actuation aerosol inhaler (Symbicort) cyanocobalamin (vitamin B-12) 1,000 mcg PO DAILY #90 caps 11/10/22 1,000 mcg capsule omeprazole 40 mg capsule,delayed See Rx Instructions .Route 11/10/22 release .COMPLEX #90 caps lisinopril 10 mg tablet 10 mg PO DAILY #90 tabs 07/06/23 dexamethasone 0.5 mg/5 mL oral 0.5 mg (5 mL) PO TID #237 mL 09/30/23 elixir estradiol 10 mcg vaginal tablet 10 mcg vaginal .COMPLEX 2 weeks 10/17/23 #24 tabs Allergies Allergy/AdvReac Type Severity Reaction Status Date / Time lactose AdvReac Unknown upsets Verified 10/27/23 20:33 stomach General Stated Complaint: HeadInjury CASANDRA: 4 Review of Systems Constitutional Constitutional: Denies fever(s) ENT Ears, Nose, Mouth, and Throat: Reports as per HPI Cardiovascular Cardiovascular: Denies dyspnea Respiratory Respiratory: Denies cough, Denies dyspnea and Denies stridor Gastrointestinal Gastrointestinal: Denies nausea Exam HENMT Face and sinus: edema (Upper lip severe) Mouth: moist mucous membranes Throat: posterior oropharynx normal Eyes Conjunctivae: normal conjunctivae Sclera: normal sclerae Neck Neck: trachea midline and supple Resp Auscultation: clear to auscultation bilaterally, no rales, no rhonchi and no wheezes Cardio Rate: regular rate and not tachycardic Rhythm: regular rhythm GI Palpation: soft, not firm, no guarding, no masses, not rigid and nontender Skin General skin exam: no rashes or lesions noted Neuro General: patient alert, patient awake and tone normal Extrem General: no edema Psych Appearance: grossly normal Mental Status: mental status grossly normal Course Vital Signs Vital signs: Vital Signs Temperature 37.1 C 10/27/23 20:25 Pulse 70 10/27/23 20:25 Respiratory Rate 15 10/27/23 20:25 Blood Pressure 201/93 H 10/27/23 20:25 Pulse Oximetry 98 10/27/23 20:25 Temperature 37.1 C 10/27/23 20:35 Temperature Source Tympanic 10/27/23 20:35 Pulse 70 10/27/23 20:35 Respiratory Rate 15 10/27/23 20:35 Respiratory Effort Normal, Non-Labored 10/27/23 20:30 Respiratory Depth Normal 10/27/23 20:30 Respiratory Pattern Normal 10/27/23 20:30 Blood Pressure 201/93 H 10/27/23 20:35 Blood Pressure Position Sitting 10/27/23 20:35 Pulse Oximetry 98 10/27/23 20:35 Oxygen Delivery Method Room Air 10/27/23 20:35 Oxygen Flow Rate 0 10/27/23 20:25 Lab/Test Results Lab/Test Results: Laboratory Tests Range/Units 10/27/23 20:55 WBC (4.4-10.8) 10^3/uL 4.88 RBC (3.93-5.22) 10^6/uL 3.82 L Hgb (11.2-15.7) g/dL 12.9 Hct (36.0-46.0) % 38.2 MCV (80-95) fL 100 H MCH (27.0-33.0) pg 33.8 H MCHC (32.0-36.0) % 33.8 RDW (11.7-14.6) % 12.3 Plt Count (130-400) 10^3/uL 199 MPV (8.0-11.0) fL 9.6 Immature Gran % 0.2 Neutrophils % 55.8 Lymphocytes % 32.6 Monocytes % 10.0 Eosinophils % 0.8 Basophils % 0.6 Nucleated RBC % (0.0-0.3) % 0.0 Absolute Neutrophils (1.2-6.7) 10^3/uL 2.72 Absolute Lymphocytes (1.2-3.4) 10^3/uL 1.59 Absolute Monocytes (0.1-0.8) 10^3/uL 0.49 Absolute Eosinophils (0.0-0.7) 10^3/uL 0.04 Absolute Basophils (0.0-0.2) 10^3/uL 0.03 Medical Decision Making 2119??patient was seen immediately on arrival. 53-year-old female presents with severe swelling of her upper lip after mild trauma around 4 PM. Swelling is progressive. No intraoral involvement or difficulty breathing. Patient is hemodynamically stable and saturating well. Suspect RANCHO induced angioedema as a result of direct local trauma. Plan to initiate treatment with FFP and TXA given severity and progression. Plan to monitor closely. 2299 --patient reassessed multiple times. There seems to be some minimal improvement of the swelling. No progression to lower lip or intraorally. Patient has received TXA and is receiving FFP at this time. Quality:SDOH Health Related Social Needs: No Data to Display Critical Care Time Critical Care Time Critical Care Time: Yes Total Critical Care Time: 40 Attestation: I spent greater than 40 minutes addressing this patient's immediate life threats. Please see MDM section of note. This time was spent engaged in work directly related to the patient's care, exclusive of separate procedures, and failure to initiate these interventions would have likely resulted in clinically significant or life threatening deterioration in the patient's condition. PFSH All Active Problems Hypertension (Chronic) Vaginal atrophy (Acute) Hyperlipemia (Acute) Skin lesion (Acute) Hyperplastic colon polyp (Acute) Tubular adenoma of colon (Acute) 12/2021- due in 2026 B12 deficiency (Acute) Anxiety (Acute) Asthma (Acute) Depressive disorder (Acute) RX for Celexa in November of 2008-her father was ill and DX'd with glioma. Has taken Celexa in the past, which worked for her. No Suicidal ideation or feelings of sadness. Dysfunctional uterine bleeding (Acute) Dysmenorrhea and myomatous uterus. Hysteroscopy and D C showing possible endometriosis and intraneural myoma.() 11/2021-Status post endometrial ablation with resolution of symptoms Gastritis (Acute 04/28/16) gastroscopy : active reflux esophagitis/no H.Pylori/no intestinal dysplasia or metaplasia Gastroesophageal reflux disease with esophagitis (Acute) per EGD 10/05/10 Internal hemorrhoids (Acute 04/28/16) Migraine (Acute) has not had any migraines for 4-5 years; Treats with Ibuprofen and rest in a dark room. High grade dysplasia in colonic adenoma (Acute) 2020-status post right-sided colectomy for dysplastic sigmoid adenoma, an at [facility]-followed by surgery, yearly colonoscopy recommended 12/2021-tubular adenoma COVID-19 (Acute) 10/2021-modest URI symptoms but significant fatigue, COPD (chronic obstructive pulmonary disease) (Chronic) Per patient, with presumed reactivity-patient on steroid maintenance inhaler Nicotine dependence (Acute) 11/2021-down to about 1 cigarette a day, history of [id number] smoking Medical History History of endometrial biopsy 08/20/19 Fracture of femur (07/07/86) Tubular adenoma 2008 colono: Tubular colonoscopy/ Sessile colonic polyp (04/26/16) colonoscopy Irritable colon : normal colonoscopy 2009: question of lactose intolerance; intermittent rectal bleeding; abdomin al bloating, cramping and reflux. Colonoscopy and EGD (Dr. Blount) in 2008 revealed tubular adenoma and the EGD s were negative. Surgical History S/P laparoscopic-assisted sigmoidectomy History of endometrial ablation History of bilateral ligation of fallopian tubes History of open reduction and internal fixation (ORIF) procedure Fracture, Open Treatment L FEMUR EGD - MAC (~2015) 2005 Dilation and curettage (~2005) DR. CLIFFORD Colonoscopy - MAC (05/08/19) 2008- Tubular adenoma 2015- Villous serrated adenoma 2021 Family History Mother Breast cancer Father , AGE 62 Heart disease Brain cancer Brother Depression Paternal Grandfather Diabetes Hyperlipidemia Hypertension Maternal Grandmother Asthma Paternal Grandmother Heart disease Neoplasm Son No problems noted. Son Asthma Daughter No problems noted. Social History Smoking/Tobacco Use Status: Current every day Tobacco Type: cigarettes and e- cigarettes Tobacco: How many years used: 40 Quit status: considering quitting Second Hand Exposure: Yes Smoking risk assessment performed?: Yes Alcohol Intake: current Alcohol Intake frequency: a few times a week Alcohol type: beer Drug use: Never Substance use type: does not use Details: edibles at night to sleep Caregiver/Support person: No Household members: significant other Housing: house Number of Children: 3 Communication Needs: None Do you need help understanding health information?: Never Pets and animals: Yes Pets and animals: dog(s), bird(s) and horse(s) Sexually active: Yes Do you think of yourself as: straight/heterosexual Current gender identity: female What is your relationship status?: living with partner How often do you talk on the phone with friends or family?: three or more times per week How often do you get together with friends or relatives?: three or more times per week Do you belong to any clubs or organized social groups?: yes Panel score (0-1 are the most socially isolated patients): 3 What type of physical activity do you participate in: walking Duration: 15-30 minutes/day Frequency: 1-2 times per week Kathy/Hindu: No preference Special kathy needs: No Seatbelt use: always Helmet use: Yes Helmet use: always Drive intox or ride w/intox driver service technician: No Do you feel safe at home: Yes Do you feel safe in your relationship?: Yes Female Reproductive History Menstrual Menopause type: surgical History History 3 Para 3 Hx # Term Pregnancies Multiple births Hx # Pregnancies Ectopic pregnancies AB induced Hx Number of Living Children AB spontaneous PAWSS Have you Been Recently Intoxicated or Drunk Within the Last 30 days?: No Have you Ever Experienced Previous Episodes of Alcohol Withdrawal?: No Have you ever Experienced Withdrawal Seizures?: No Have you ever Experienced Delirium Tremens(DT)s?: No Have you ever undergone Alcohol Rehabilitation Treatment (i.e, inpt ot outpatient treatment programs)?: No Have you ever Experienced Blackouts?: No Have you ever Combined Alcohol with other Downers within the last 90 days?: No Have you ever Combined Alcohol with any other Substance of Abuse during the last 90 days?: No Positive Blood Alcohol level on Presentation? [PCS.BAL]: No Evidence of Increased Autonomic Activity (i.e. HR>120, tremor, sweating, agitation, nausea)?: No Result: 0
[2023-10-27 21:17] LABS: ALT 21 U/L (14-59); AST 23 U/L (15-37); Alkaline Phosphatase 79 U/L (46-116); Anion Gap 8.5 mmol/L (3-11); BUN 11 mg/dL (7-18); Bilirubin, Total 0.2 mg/dL (0.2-1.0); CO2 28.5 mmol/L (21.0-32.0); CREATININE 0.7 mg/dL (0.55-1.02); Calcium 8.7 mg/dL (8.5-10.1); Chloride 95 mmol/L (98-107); Estimated GFR 102.71 (mL/min/1.73m2); Glucose 89 mg/dL (74-106); Potassium 3.6 mmol/L (3.5-5.1); Sodium 132 mmol/L (136-145); Total Protein 7.8 g/dL (6.4-8.2)
[2023-10-28] VITALS (44 sets, daily range): BP systolic 131–158; BP diastolic 68–89; PULSE 60–70; RESP 16; TEMP 36.8–37.2; O2SAT 92–99
--- NOTE | 2023-10-28 00:39 | ED.PROG_ITS ---
Date of service: 10/28/23 Time of Service: 00:39 Medical Decision Making Patient was signed out to me by my colleague Dr. Fadi Schofield for continued evaluation after FFP and TXA administration. On reassessment the patient's symptoms remained stable, they certainly have not worsened, but they have only minimally improved. The FFP is only about longterm administered at this point. Will continue to monitor closely. 3:30 AM Patient's symptoms appear to be continually improving slowly. She has had no worsening whatsoever. I did discuss with the patient observation/admission, and the patient has made it unequivocally clear that she does not want to be admitted. I did offer for her to continue to be observed here in the emergency department, and she agreed to that. We will continue to monitor closely. 6 AM After 10 hours of observation the patient's symptoms continue to improve. Swelling has notably diminished compared to original onset. Patient feels well, patient is requesting discharge. Patient is able to swallow well, she has no edema of the tongue. No edema of the lower lips. Although the patient appears notably stable and has actual notable improvement I did discuss continued observation and the benefits of this versus risks of discharge. Understanding this completely including the very small but present risk of worsening of her scenario disability or , patient understands and would like to go home as she feels that she has had a notable clinical improvement. She certainly does demonstrate quite the clinical improvement, and respecting her wishes she will be discharged. I made it very clear that if any swelling returns or her symptoms worsen in any way she needs to return immediately for reassessment. Patient understands. Will recommend stopping lisinopril for the time being with close/immediate follow-up with her PCP for further discussion of outpatient an tihypertensives. Discussed red flags which to return. I have extensively reviewed the treatment plan and discharge instructions with the patient. I have addressed all patient concerns at this time. The patient was made aware of what symptoms to monitor for that would warrant a return to the emergency department. Discussed the plan with the patient, they demonstrate verbal understanding and agreement with our assessment and plan at this time. The documentation in this chart was dictated using [employer] dictation software. Please excuse any dictation errors. Quality:SDOH Health Related Social Needs: No Data to Display Sign Out Sign Out Data: Sign Out Comment: Patient with angioedema of her upper lip after mild trauma, suspect RANCHO induced angioedema. Airway intact. Patient has received transischemic acid 1 g and receiving a total of 2 units of FFP. Plan at signout was to reassess patient after medication. Disposition pending reassessment. Plan for discontinuation of lisinopril. Last updated by Fadi Schofield MD at 10/27/23 23:35 Discharge Plan Disposition Patient Disposition: Home Condition: Good Discharge Details Clinical Impression: Swelling of upper lip Primary Care Provider: Nash Velasco ED Provider: Joseph Plummer Home Meds and New Rx's Prescriptions: Continued dexamethasone 0.5 mg/5 mL elixir 0.5 mg PO TID Qty: 237 1RF triamcinolone acetonide 0.1 % cream 1 applic TP BID PRN (Reason: dermatitis) Qty: 30 3RF hydroxyzine HCl 25 mg tablet 25 - 50 mg PO HS PRN (Reason: itching) Qty: 30 2RF Rx Instructions: take 1 to 2 tablets at bedtime as needed albuterol sulfate [ProAir HFA] 90 mcg/actuation HFA aerosol inhaler 1 - 2 puff Inhalation QID PRN (Reason: bronchospasm, wheeze) Qty: 1 5RF budesonide-formoterol [Symbicort] 80-4.5 mcg/actuation HFA aerosol inhaler 2 puff Inhalation BID Qty: 30.6 3RF Rx Instructions: take 2 puffs twice a day cyanocobalamin (vitamin B-12) 1,000 mcg capsule 1,000 mcg PO DAILY Qty: 90 3RF omeprazole 40 mg capsule,delayed release(DR/EC) See Rx Instructions .ROUTE .COMPLEX Qty: 90 3RF Dose Instruction: TAKE 1 CAPSULE BY MOUTH DAILY Rx Instructions: TAKE 1 CAPSULE BY MOUTH DAILY estradiol 10 mcg tablet 10 mcg vaginal .COMPLEX 14 Days Qty: 24 4RF Rx Instructions: 10 mcg vaginally twice weekly; trazodone 50 mg tablet 25 mg PO QHS PRN (Reason: sleep) Discontinued lisinopril 10 mg tablet 10 mg PO DAILY Qty: 90 3RF Discharge Instructions Instructions: Angioedema (ED) Additional Instructions: At this time your symptoms are improving. As we discussed together the ideal option would be to stay for an additional 12 to 24 hours. You have elected to go home. Please monitor your symptoms very closely. Continue to apply ice to your upper lip. It is recommended that you stop taking the lisinopril, and follow-up as soon as possible with your primary care provider for further discussion of antihypertensive manage treatment options. If you notice any worsening of your symptoms, or any new symptoms such as difficulty breathing, increased swelling anywhere, difficulty swallowing, vomiting, diarrhea, fever, chills, shortness of breath, chest pain, numbness, weakness, or fainting , please return immediately to the emergency department for reevaluation. Please follow up with your primary care provider as soon as possible for reassessment and reevaluation. As always, it was a pleasure participating in your medical care today. Referrals: Nash Velasco NP [Primary Care Provider] -
[2023-10-28] MEDS: diphenhydrAMINE 50 MG/ML VIAL 25 MG IVP (01:11)
[2023-10-28] MEDS: methylPREDNISolone SUCC 125 MG VIAL IVP (01:11)
[2023-10-28] MEDS: Famotidine 20 MG/2 ML VIAL IVP (01:11)
== END 2023-10-28 06:14 | disposition home or self-care (01) ==
PROVIDERS: Student in an Organized Health Care Education/Training Program; Emergency Provider Student in an Organized Health Care Education/Training Program; PCP Nurse Practitioner Family
DX: S00.501A Unspecified superficial injury of lip, initial encounter (principal); T78.3XXA Angioneurotic edema, initial encounter; I10 Essential (primary) hypertension; J44.9 Chronic obstructive pulmonary disease, unspecified; F17.290 Nicotine dependence, other tobacco product, uncomplicated; F17.210 Nicotine dependence, cigarettes, uncomplicated; Z79.899 Other long term (current) drug therapy
CPT/HCPCS: 00123; 36430; 80053; 86900; 86901; 96374; 96375; 99284; 85025; J1200; J2930; P9059

== ENCOUNTER 2023-11-01 11:39 | Outpatient (REF) | payer OTHER, SELFPAY ==
--- NOTE | 2023-11-01 11:15 | PAPFT_PTH ---
PATIENT: Kiya Lewis LOC: [facility] ([facility]) U#:[id number] AGE/SX: 53/F ROOM: RE11/01/[address]: Melissa Henry : 1970 BED: DIS: 11/01/2023 SPEC #: [id number] RECD: 11/01/23 12:53 STATUS: KIRILL REDianne #: [id number] SOTRM: 11/01/23 11:[address]: Melissa Henry DEPT: [facility] Cytology RECD BY: Marcelle Little ENTERED: 11/01/23 12:54 SP TYPE: PAPFT KINSEY DR: Nash Velasco, VICENTA Tissues: 1 - CX/ENDOCX FOR PAP SMEARS Procedures: PAP THIN PREP/UVM Screening HPV DNA PROBE Comments: [id number]
== END 2023-11-01 11:40 | disposition home or self-care (01) ==
LOC: LBN 11:39
PROVIDERS: PCP Nurse Practitioner Family; Visit Provider Obstetrics & Gynecology Gynecology
DX: Z12.4 Encounter for screening for malignant neoplasm of cervix (principal); Z11.51 Encounter for screening for human papillomavirus (HPV)
CPT/HCPCS: 88142; 87624

== ENCOUNTER → 2024-02-14 01:30 | Outpatient (CLI) | payer OTHER, SELFPAY ==
--- NOTE | 2024-02-14 11:45 | DI.MAMMO_ITS ---
Exam(s) MAMMO SCREENING EXAM: MAMMO SCREENING CLINICAL HISTORY: screening TECHNIQUE: Mammograms were interpreted according to the usual protocol including computer analysis w [employer] CAD system, tomosynthesis and C-view imaging. COMPARISON: 2015 through 2022 FINDINGS: The breasts are composed of scattered fibroglandular densities, Breast Density category B. No suspicious masses or suspicious microcalcifications are seen. No skin thickening or abnormal axillary lymph nodes are seen. There has been no significant change from prior exams. IMPRESSION: BI-RADS Category 1, Negative mammogram Yearly screening mammography is recommended. Breast Density - Category B, scattered fibroglandular densities. A negative radiographic report should not delay biopsy if a dominant or clinically suspicious mass is present. Up to ten percent of cancers are not identified on mammography. A negative report may reinforce clinical impression. Adenosis and dense breasts may obscure an underlying neoplasm. False positive reports average 6 to 10%. Patient will receive a letter notifying them of these results.
== END ==
PROVIDERS: PCP Nurse Practitioner Family; Visit Provider Obstetrics & Gynecology Gynecology
DX: Z12.39 Encounter for other screening for malignant neoplasm of breast (principal); Z12.31 Encounter for screening mammogram for malignant neoplasm of breast
CPT/HCPCS: 77063; 77067

== ENCOUNTER 2024-06-29 01:53 | Outpatient (CLI) | payer OTHER, SELFPAY ==
--- NOTE | 2024-06-29 07:30 | DI.CTLCSR_ITS ---
Exam(s) CT CHEST LUNG CANCER SCREEN EXAM: CT CHEST LUNG CANCER SCREEN CLINICAL HISTORY: Screening for lung cancer F17.210 NICOTINE DEPENDENCE TECHNIQUE: Imaging Protocol: Axial computed tomography images with coronal and sagittal reformatted images were created and reviewed. Low dose screening protocol. COMPARISON: CT CT CHEST LUNG CANCER SCREEN from 02/02/2022 FINDINGS: Tracheobronchial tree: No bronchiectasis or mucus plugging. Mediastinum and Precious: No dominant adenopathy or fluid collection. Pulmonary parenchyma: No consolidation or dominant measurable mass. No visible emphysematous changes. No significant interstitial changes. Small area of scarring laterally in the left lower lobe. Mild s carring inferior lingula. Lung Nodules: Stable 3 millimeter nodule right lower lobe. Pleura: No effusion. No pneumothorax. Heart: The heart is not dilated. Moderate coronary artery calcifications are seen. No pericardial eff usion. Aorta: Thoracic aorta non-dilated. Upper abdomen: Unremarkable. Bones: Unremarkable for age. Soft Tissues: Unremarkable. IMPRESSION: No suspicious pulmonary nodules. Lung RADS Cat 2 - Benign Appearance / Behavior: Nodules with a very low likelihood of becoming a clin ically active cancer due to size or lack of growth Lung-RADS 1.0 CATEGORIES: Category 0 - Prior chest CT exam(s) being located for comparison. Category 1 - Annual screening in 12 months. No nodules or definitely benign nodules. Category 2 - Annual screening in 12 months. Benign appearance. Nodules with low likelihood of becomin g active cancer. Category 3 - 6-month follow-up. Probably benign. Short-term follow-up suggested. Nodules with low lik elihood of becoming active cancer. Category 4A - 3-month follow-up and CT/PET if >8 mm in size. Suspicious finding. Findings which requi re additional testing. Category 4B - Findings which require additional testing and tissue sampling. Category 4X - Category 3 or 4 nodules with additional features or imaging findings that increases the suspicion of malignancy. Modifier S- Potentially clinically significant findings (non lung cancer) RADIATION DOSE DELIVERED: !Error Total DLP DATA REPOSITORY: All CT scans at this facility are submitted to the National Radiology Data Registry (NRDR) Dose Index Registry (DIR) with the [employer] (ACR). RADIATION OPTIMIZATION: All CT scans at this facility use at least one of these dose optimization te chniques: automated exposure control; mA and/or kV adjustment per patient size (includes targeted exa ms where dose is matched to clinical indication); or iterative reconstruction.
[2024-06-29 07:49] LABS: Hemoglobin A1C 5.4 % (<5.7)
[2024-06-29 08:47] LABS: Calculated LDL 109 mg/dL (<100); Cholesterol 192 mg/dL (<200); HDL Cholesterol 71 mg/dL (40-60); Triglyceride 64 mg/dL (<150); Vitamin B12 765 pg/mL (193-986)
== END 2024-06-29 01:54 | disposition home or self-care (01) ==
LOC: LBO 01:53
PROVIDERS: PCP Nurse Practitioner Family; Visit Provider Nurse Practitioner Family
DX: Z13.220 Encounter for screening for lipoid disorders (principal); Z13.1 Encounter for screening for diabetes mellitus; E53.8 Deficiency of other specified B group vitamins; F17.210 Nicotine dependence, cigarettes, uncomplicated
CPT/HCPCS: 36415; 71271; 80061; 82607; 83036

== ENCOUNTER 2025-05-09 06:00 | Day surgery (SDC) | payer OTHER, SELFPAY ==
[2025-05-09 06:12] VITALS: BP 128/84; PULSE 79; RESP 18; TEMP 36.4; O2SAT 18
[2025-05-09] MEDS: Lactated Ringers 1,000 ML 80 ML IV (06:34)
--- NOTE | 2025-05-09 07:15 | W.ANESPRE ---
General Info Date of Service Date Performed: 05/09/25 Height: 5 ft 4 in Weight: 79.379 kg Body Mass Index (BMI): 30.0 Surgical Procedure: Operation Date: 05/09/25 07:35 Proposed Procedure Side Surgeon trina Gordon MD Meds Allergies and Home Medications Allergies Allergy/AdvReac Type Severity Reaction Status Date / Time lisinopril Allergy Intermediate angioedema Verified 05/09/25 06:16 lactose AdvReac Unknown upsets Verified 05/09/25 06:16 stomach Home Medication ?Medication ?Instructions ?Recorded trazodone 50 mg tablet 25 mg PO QHS PRN sleep 12/23/21 albuterol sulfate 90 mcg/actuation 1 - 2 puff inhalation QID PRN 11/28/23 aerosol inhaler (ProAir HFA) bronchospasm, wheeze ##1 triamcinolone acetonide 0.5 % 1 applic topical BID PRN 12/02/23 topical cream dermatitis #15 grams losartan 25 mg tablet 25 mg PO DAILY #90 tabs 10/05/24 budesonide-formoterol HFA 80 2 puff inhalation BID #30.6 grams 11/22/24 mcg-4.5 mcg/actuation aerosol inhaler (Symbicort) cyanocobalamin (vitamin B-12) See Rx Instructions .Route 11/22/24 1,000 mcg tablet .COMPLEX #90 tabs omeprazole 40 mg capsule,delayed See Rx Instructions .Route 11/22/24 release .COMPLEX #90 caps hydroxyzine HCl 25 mg tablet 25 - 50 mg (1 - 2 x 25 mg) PO HS 01/16/25 PRN itching #30 tab-caps bisacodyl 5 mg tablet,delayed 5 mg PO ONCE #4 tabs 04/24/25 release (Dulcolax (bisacodyl)) polyethylene glycol 3350 17 17 g PO ONCE #238 grams 04/24/25 gram/dose oral powder Current Visit Medications: Current Medications Generic Name Dose Route Start Last Admin Trade Name Freq PRN Reason Stop Dose Admin Ringer's Solution 1,000 mls @ 80 mls/hr 05/09/25 06:00 05/09/25 06:34 IV 05/09/25 23:59 80 mls/hr INFUSION GIULIANO Administration IV Miscellaneous Supplies 1 each 05/09/25 06:00 Iv Access IV 05/09/25 23:59 DIRECTED GIULIANO Sodium Biphosphate/Sodium Phosphate 133 - 266 ml 05/09/25 06:00 Na Phosphate Enema-Adult 133 Ml Btl WA 05/09/25 23:59 DIRECTED PRN Sodium Chloride 0 ml 05/09/25 06:00 Normal Saline Flush 10 Ml Syr IV 05/09/25 23:59 PRN PRN Sodium Chloride 0 ml 05/09/25 06:00 Normal Saline 10 Ml Vial IJ 05/09/25 23:59 DIRECTED PRN Sterile Water 0 ml 05/09/25 06:00 Water,Injection,Sterile 10 Ml Vial IJ 05/09/25 23:59 DIRECTED PRN PFSH Active Problems Active Problems: Problem Status Onset Code Plaque psoriasis Acute L40.0 Vasomotor symptoms due to menopause Acute N95.1 Hypertension Chronic I10 Vaginal atrophy Acute N95.2 Hyperlipemia Acute E78.5 Skin lesion Acute L98.9 Hyperplastic colon polyp Acute K63.5 Tubular adenoma of colon Acute D12.6 B12 deficiency Acute E53.8 Anxiety Acute F41.9 Asthma Acute J45.909 Depressive disorder Acute F32.9 Dysfunctional uterine bleeding Acute N93.8 Gastritis Acute 04/28/16 K29.70 Gastroesophageal reflux disease with esophagitis Acute K21.0 Internal hemorrhoids Acute 04/28/16 K64.8 Migraine Acute G43.909 High grade dysplasia in colonic adenoma Acute D12.6 COVID-19 Acute U07.1 COPD (chronic obstructive pulmonary disease) Chronic J44.9 Nicotine dependence Acute F17.200 Medical History Medical History History of endometrial biopsy 08/20/19 Fracture of femur (07/07/86) Tubular adenoma 2008 colono: Tubular colonoscopy/ Sessile colonic polyp (04/26/16) colonoscopy Irritable colon : normal colonoscopy 2008: question of lactose intolerance; intermittent rectal bleeding; abdominal bloating, cramping and reflux. Colonoscopy and EGD (Dr. Blount) in 2008 revealed tubular adenoma and the EGD s were negative. Surgical History Surgical History S/P laparoscopic-assisted sigmoidectomy History of endometrial ablation History of bilateral ligation of fallopian tubes History of open reduction and internal fixation (ORIF) procedure Fracture, Open Treatment L FEMUR EGD - MAC (~2015) 2005 Dilation and curettage (~2005) DR. CLIFFORD Colonoscopy - MAC (05/08/19) 2008- Tubular adenoma 2015- Villous serrated adenoma 2021 Tobacco Smoking/Tobacco Use Status: Current every day Tobacco Type: e-cigarettes Passive smoking exposure: No Second hand exposure: Yes Alcohol Alcohol Intake: current Alcohol intake frequency: 0-2 drinks per day Alcohol type: beer Details: 5-6 drinks on a typical day, 6 or more drinks weekly Substance Use Substance use: Rarely Substance use type: marijuana Details: alcohol: t-2, couple beers .edibles at night to sleep t-60. Vaped t 0600 Prental History History 3 Para 3 Hx # Term Pregnancies Multiple births Hx # Pregnancies Ectopic pregnancies AB induced Hx Number of Living Children AB spontaneous Vital Signs and Lab Results Vital Signs Most Recent Vital Signs in EMR: Most Recent Vital Signs Temp Pulse Resp BP Pulse Ox 36.4 C L 79 18 128/84 18 L 05/09/25 06:12 05/09/25 06:12 05/09/25 06:12 05/09/25 06:12 05/09/25 06:12 Anesthesia Assessment and Plan Anesthesia History Personal History: No History of Anesthesia Complications Family History: No Family History of Anesthesia Complications Exercise Tolerance Exercise Tolerance: Metabolic Equivalents>4 Pertinent Negatives Pertinent Negatives: No Symptoms of GERD Cardiac & Pulmonary Exam Cardiac Exam: Normal S1/S2 Heart Sounds Pulmonary Exam: Clear Bilateral Breath Sounds Implantable Cardiac Device Does patient have a Pacemaker or an ICD?: No Airway Exam Known Difficult Airway: No Mallampati Class: 2 Mouth Opening: Normal (> 3cm) Thyromental Distance: Less than 3 cm Neck Range of Motion: Full ROM Neck Circumference: Normal Teeth Condition: Normal Dentition ASA Classification ASA Score: ASA 2 Emergency Case?: No NPO Status NPO Status: NPO Clears >2 hours, Solids >8 hours Anesthesia Plan Resuscitation Status: Full Code Anesthesia Technique: General Anesthesia Airway Planned: Natural Airway Monitors Used: Standard Monitors
--- NOTE | 2025-05-09 07:51 | BOWEL_PTH ---
PATIENT: Kiya Lewis LOC: [facility] U#:[id number] AGE/SX: 55/F ROOM: RE05/09/[address]: Michelle Gordon MD : [id number] BED: DIS: 05/09/2025 SPEC #: [id number] RECD: 05/09/25 12:37 STATUS: KIIRLL RE #: [id number] STORM: 05/09/25 07:[address]: Michelle Gordon DEPT: Surgical Specimen RECD BY: Marcelle Little ENTERED: 05/09/25 12:38 SP TYPE: Bowel OTHR DR: Nash Velasco, STORE CUSTODIAN Tissues: 1 - BIOPSY BOWEL Procedures: GROSS AND MICRO LEVEL 4 Comments: [id number]
--- NOTE | 2025-05-09 07:58 | W.PM.DSUDISC ---
Date of service: 05/09/25 Discharge Plan Disposition Patient Disposition: Home Condition: Stable Discharge Details Attending Provider: Michelle Gordon Primary Care Provider: Nash Velasco Home Meds and New Rx's Prescriptions: Continued triamcinolone acetonide 0.5 % cream 1 applic TP BID PRN (Reason: dermatitis) Qty: 15 3RF albuterol sulfate [ProAir HFA] 90 mcg/actuation HFA aerosol inhaler 1 - 2 puff Inhalation QID PRN (Reason: bronchospasm, wheeze) Qty: 1 5RF losartan 25 mg tablet 25 mg PO DAILY Qty: 90 3RF omeprazole 40 mg capsule,delayed release(DR/EC) See Rx Instructions .ROUTE .COMPLEX Qty: 90 3RF Dose Instruction: TAKE 1 CAPSULE BY MOUTH DAILY Rx Instructions: TAKE 1 CAPSULE BY MOUTH DAILY budesonide-formoterol [Symbicort] 80-4.5 mcg/actuation HFA aerosol inhaler 2 puff Inhalation BID Qty: 30.6 3RF Patient Comments: pt only using once a day Rx Instructions: take 2 puffs twice a day cyanocobalamin (vitamin B-12) 1,000 mcg tablet See Rx Instructions .ROUTE .COMPLEX Qty: 90 3RF Dose Instruction: TAKE 1 TABLET BY MOUTH DAILY Rx Instructions: TAKE 1 TABLET BY MOUTH DAILY hydroxyzine HCl 25 mg tablet 25 - 50 mg PO HS PRN (Reason: itching) Qty: 30 2RF Rx Instructions: take 1 to 2 tablets at bedtime as needed trazodone 50 mg tablet 25 mg PO QHS PRN (Reason: sleep) Patient Comments: pt has not refilled in months Discontinued bisacodyl [Dulcolax (bisacodyl)] 5 mg tablet,delayed release (DR/EC) 5 mg PO ONCE Qty: 4 0RF Rx Instructions: Take per colonoscopy instructions provided by ordering providers office polyethylene glycol 3350 17 gram/dose powder 17 g PO ONCE Qty: 238 0RF Rx Instructions: Take per colonoscopy instructions provided by ordering providers office Discharge Instructions Additional Instructions: One very small polyp seen and removed. will see what kind of polyp it turns out to be on biopsy, and let you know when your next colonoscopy is due. Will be due next in 5 years if its adenoma or hyperplastic polyp, and 3 years if its a sessile serrated polyp. Stand Alone Forms: Anesthesia Discharge Inst., Colonoscopy Post Instructions, Press Carloz (DSU) Activity:: Activity as Tolerated Diet:: As Tolerated Discharge Orders Discharge Orders: Discharge Order (Routine); Ordered 05/09/25 Ordered By: Michelle Gordon DS: Diagnosis Discharge Diagnosis (1) Encounter for colonoscopy due to history of adenomatous colonic polyps: Status: Acute (2) Polyp of descending colon: Status: Acute
--- NOTE | 2025-05-09 08:01 | W.COLOREPORT ---
Date of service: 05/09/25 Time of Service: 08:01 Colonoscopy Report Date of procedure: 05/09/25 Pre-op diagnosis general: history of colon polyps Post-op diagnosis procedure note: same (descending colon polyp) Procedure: Colonoscopy Surgeon: Michelle Gordon Anesthesia Type: General:No Airway Estimated blood loss (mL): 1 Pathology: other (descending colon polyp) Complications: None Indications: screening for colorectal cancer Prep: Miralax/Dulcolax (excellent) Procedure Description: Informed consent was obtained and the patient was taken to the procedure area. The patient was placed in left lateral decubitus position on the procedure table. Timeout was performed. Anesthesia was induced. A lubricated colonoscope was inserted through the anus and passed to the ileocolic anastomosis. The scope was then slowly withdrawn and the colonic and rectal mucosa examined. Evidence of prior partial right colectomy with patent ileocolic anastomosis. Descending colon polyp 3mm sessile excised with cold forceps. No diverticulosis was seen. The scope was retroflexed in the anorectal junction examined. Uncomplicated internal hemorrhoids present. Assessment and plan: Descending colon polyp Next colonoscopy will be due in 5 years if tubular adenoma, 3 years if sessile serrated. 5 years if hyperplastic due to previous high risk polyps.
[2025-05-09 08:02] VITALS: BP 125/70; PULSE 60; RESP 12; TEMP 36.3; O2SAT 98
[2025-05-09 08:33] VITALS: BP 132/77; PULSE 56; RESP 14; TEMP 36.6; O2SAT 100
--- NOTE | 2025-05-09 08:36 | W.ANESPOSTOP ---
Postoperative Evaluation Date, Time and Location Date Performed: 05/09/25 Time Performed: 08:36 Patient Location: Day Surgery Unit Vital Signs Most Recent Imported Vital Signs: Most Recent Vital Signs Temp Pulse Resp BP Pulse Ox 36.6 C 56 L 14 132/77 100 05/09/25 08:33 05/09/25 08:33 05/09/25 08:33 05/09/25 08:33 05/09/25 08:33 Pain Score Most Recent Pain Score: Most Recent Pain Score Pain Level 0 05/09/25 08:33 Assessment Mental Status: Awake (Alert & Oriented to Patient Baseline) Airway and Respiratory Function: Patent airway with normal (patient baseline) respiratory exam Cardiovascular Function: Hemodynamically Stable Hydration Status: Adequately Hydrated Nausea & Vomiting: No Nausea or Vomiting Pain: Pt. Denies Any Pain Peripheral Nerve Block: Patient did not receive a nerve block
== END 2025-05-09 08:41 | disposition home or self-care (01) ==
LOC: SUR 06:01
PROVIDERS: PCP Nurse Practitioner Family; Visit Provider Surgery
PROC: 0DJD8ZZ Inspection of Lower Intestinal Tract, Via Natural or Artificial Opening Endoscopic (ICD-10-PCS; CPT 45378; principal; 2025-05-09 07:30)
DX: Z12.11 Encounter for screening for malignant neoplasm of colon (principal); K63.5 Polyp of colon
CPT/HCPCS: 45380; 88305; J2704

== ENCOUNTER 2025-07-15 01:34 | Outpatient (CLI) | payer OTHER, SELFPAY ==
[2025-07-15 14:43] LABS: ALT 12 U/L (10-49); AST 19 U/L (<34); Albumin 4.4 g/dL (3.2-5.0); Alkaline Phosphatase 79 U/L (46-116); Anion Gap 9 mmol/L (3-11); BUN 12 mg/dL (9-23); Bilirubin, Total 0.30 mg/dL (0.2-1.2); CO2 30.3 mmol/L (20.0-31.0); Calcium 8.8 mg/dL (8.3-10.6); Chloride 100 mmol/L (98-107); Cholesterol 205 mg/dL (<200); Glucose 96 mg/dL (74-106); HDL Cholesterol 70 mg/dL (>40); Potassium 3.8 mmol/L (3.5-5.1); Sodium 139 mmol/L (136-145); Total Protein 7.4 g/dL (5.7-8.2)
[2025-07-15 15:04] LABS: Vitamin B12 1270 pg/mL (211-911)
[2025-07-15 15:26] LABS: Hemoglobin A1C 5.2 % (<5.7)
== END 2025-07-15 01:35 | disposition home or self-care (01) ==
LOC: LOS 01:34
PROVIDERS: PCP Nurse Practitioner Family; Visit Provider Nurse Practitioner Family
DX: Z13.220 Encounter for screening for lipoid disorders (principal); Z13.1 Encounter for screening for diabetes mellitus; E53.8 Deficiency of other specified B group vitamins; I10 Essential (primary) hypertension
CPT/HCPCS: 36415; 80053; 80061; 82607; 83036